=== PATIENT | female | born 1960 | race Caucasian/White ===

== ENCOUNTER → 2020-07-26 16:09 | Outpatient (CLI) | payer OTHER, SELFPAY ==
--- NOTE | 2020-07-26 16:16 | BI_ITS ---
MAMMOGRAPHY - BILATERAL SCREENING REASON FOR EXAM: Female, 60 years old. Routine annual screening examination. PERTINENT HISTORY: Non-contributory. TECHNIQUE: Digital bilateral breast lee (3D mammographic acquisition) in the CC and MLO projections. 2-D mediolateral oblique (MLO) and craniocaudad (CC) views of both breasts were obtained. CAD: Full Field Digital Mammography with Computer Added Detection was performed. COMPARISON: Comparison is made with prior outside examination dated 06/28/2019. FINDINGS: Breast Composition: The breasts are heterogeneously dense, which may obscure small masses. There are no dominant masses or suspicious calcifications. Stable small benign-appearing bilateral axillary lymph nodes. No other significant abnormalities are identified. There has been no significant change since the prior study. BI/SCREEN MAMM (CAD) W/LEE BILAT IMPRESSION: Stable bilateral screening mammogram. Yearly follow-up mammogram recommended. (A) ASSESSMENT CATEGORY: BIRADS Category 2: Benign. A letter regarding these results will be sent to the patient by the facility within 30 days. Approximately 10% of breast cancers are not detected by mammography. A normal mammogram should not delay biopsy of a clinically suspicious abnormality. [id number] Electronically Signed: Josh Beal, at 8:00 EST , Service support ,
== END ==
PROVIDERS: PCP Family Medicine; Referring Provider Family Medicine; Visit Provider Family Medicine
DX: Z12.31 Encounter for screening mammogram for malignant neoplasm of breast (principal)
CPT/HCPCS: 77063; 77067

== ENCOUNTER → 2021-08-21 10:17 | Outpatient (CLI) | payer OTHER, SELFPAY ==
--- NOTE | 2021-08-21 10:21 | BI_ITS ---
MAMMOGRAPHY - BILATERAL SCREENING 3-D TOMOSYNTHESIS REASON FOR EXAM: Female, 61 years old. SCREENING PERTINENT HISTORY: No significant family history. TECHNIQUE: 2-D mammograms and 3-D Tomosynthesis of the breast (s) were performed. CAD was performed. COMPARISON: 07/26/2020 FINDINGS: The breast composition is heterogeneously dense that can obscure small breast masses. Scattered benign calcifications are seen. No dense spiculated masses or suspicious microcalcifications are identified. No architectural distortion is identified. There is no skin thickening or retraction. There has been no significant change since the prior study. BI/SCRN MAMM (CAD)W/LEE BILAT IMPRESSION: No mammographic signs of malignancy. Routine yearly mammograms recommended. ASSESSMENT CATEGORY: BIRADS Category 1: Negative. A letter regarding these results will be sent to the patient by the facility within 30 days. FOLLOW UP RECOMMENDATION: Yearly follow up mammogram recommended. (A) Approximately 10% of breast cancers are not detected by mammography. A normal mammogram should not delay biopsy of a clinically suspicious abnormality. Electronically Signed: Rhett Liu MD at 11:41 EST Tel , Service support ,
--- NOTE | 2021-08-21 10:23 | BD_ITS ---
STUDY: DUAL ENERGY X-RAY ABSORPTIOMETRY / DXA REASON FOR EXAM: Female, 61 years old. Z780. Patient is postmenopausal. TECHNIQUE: Bone Mineral Density (BMD) measurements of lumbar spine and bilateral hips were obtained. COMPARISON: None. FINDINGS: Lumbar Spine (L1-L4): g/cm2 (0.863) / T-score (-1.7) / Z-score (-0.2) Findings are suggestive of osteopenia with a moderate fracture risk. Left Femur Total: g/cm2 (0.775) / T-score (-1.4) / Z-score (-0.4) Left Femoral Neck: g/cm2 (0.712) / T-score (-1.2) / Z-score (0.1) Right Femur Total: g/cm2 (0.796) / T-score (-1.2) / Z-score (-0.2) Right Femoral Neck: g/cm2 (0.715) / T-score (-1.2) / Z-score (0.1) BD/Dexa Bone Density Study IMPRESSION: The patient is considered osteopenic as outlined below according to World Ol[employer] Organization (WHO) criteria with a moderate fracture risk. Reference Information: The T-score is the number of standard deviations above or below the standard which is normal for young adults at their peak bone mineral density. The World Health Organization (WHO) interprets the T-scores as follows: Above -1 Normal bone density Between -1 and -2.5 Osteopenia Equal to / or below -2.5 Osteoporosis As a practical clinical guideline, osteopenia may be graded as follows: Mild -1 through -1.5 Moderate -1.6 through -2.0 Severe -2.1 through -2.4 The Z-score is the number of standard deviations above or below age-matched controls. A Z-score of less than -1.5 would be considered abnormal. References: 1. NIH Osteoporosis and Related Bone Diseases www osteo.org 2. International Society for Clinical Densitometry www iscd.org 3. National Osteoporosis Foundation www nof.org Electronically Signed: Josh Beal MD at 15:02 EST , Service support ,
== END ==
PROVIDERS: PCP Family Medicine; Referring Provider Internal Medicine; Visit Provider Internal Medicine
DX: Z12.31 Encounter for screening mammogram for malignant neoplasm of breast (principal); Z78.0 Asymptomatic menopausal state
CPT/HCPCS: 77063; 77067; 77080

== ENCOUNTER → 2022-06-19 | Outpatient (CLI) | payer OTHER, SELFPAY ==
[2022-06-19 17:58] LABS: Absolute Lymphocyte Count 1.58 X10^3/uL (0.83-4.51); Absolute Neutrophil Count 4.7 X10^3/uL (2.0-7.7); Basophil# 0.06 X10^3/uL; Basophil% 0.8 % (0-1); Eosinophils% 5.5 % (0-5); Hematocrit 40.2 % (37-47); Hemoglobin 12.2 g/dL (12.0-15.0); Lymphocyte # 1.58 X10^3/ul (0.83-4.51); Lymphocyte % 21.8 % (19-41); Mean Corp Hgb Conc 30.3 g/dL (32-36); Mean Corpuscular Hgb 21.7 pg (27.0-32.0); Mean Corpuscular Volume 71.4 fL (81-99); Mean Platelet Vol. 10.9 fl (6.2-12.0); Monocyte# 0.51 X10^3/uL; NRBC Flagged by Analyzer 0 % (0-5); Neutrophil # 4.68 X10^3/uL (2.7-7.7); Neutrophil % 64.6 % (47-70); Platelet Count 255 K/mm3 (150-450); RBC Distribution Width CV 18.8 % (11.6-14.6); Red Blood Count 5.63 M/mm3 (4.2-5.4); White Blood Count 7.3 K/mm3 (4.4-11.0)
[2022-06-19 18:33] LABS: ALB/GLOB Ratio 1.2 RATIO (0.9-2.4); AST(SGOT) 22 U/L (15-37); Alanine Aminotransfer ALT/SGPT 51 U/L (13-56); Alkaline Phosphatase 54 U/L (45-117); Anion Gap 5 (5-15); BUN 17 mg/dL (7-18); BUN/Creat Ratio 17.3 RATIO (10-20); Calcium,Total 9.4 mg/dL (8.5-10.1); Chloride 103 mmol/L (98-107); Cholesterol 192 mg/dL (200); Creatinine, Serum 0.98 mg/dL (0.55-1.02); EST Glomerular Filtration Rate 61 mL/min (>60); Est Glom Filt Rate - Afr Amer 74 mL/min (>60); Globulin 3.2 g/dL (2.2-4.2); Glucose 87 mg/dL (74-106); High Density Lipoprotein 73 mg/dL; Protein, Total 7.2 g/dL (6.4-8.2); Sodium Level 137 mmol/L (136-145); Triglycerides 104 mg/dL; Very Low Density Lipoprotein 21 mg/dL (5-40)
== END | disposition home or self-care (01) ==
LOC: MTLAB 16:52
PROVIDERS: PCP Internal Medicine; Referring Provider Internal Medicine; Visit Provider Internal Medicine
DX: E78.5 Hyperlipidemia, unspecified (principal); E55.9 Vitamin D deficiency, unspecified
CPT/HCPCS: 36415; 80053; 80061; 82306; 85025

== ENCOUNTER → 2022-11-26 | Outpatient (CLI) | payer OTHER, SELFPAY ==
--- NOTE | 2022-11-26 08:43 | US_ITS ---
STUDY: ABDOMINAL ULTRASOUND - RIGHT UPPER QUADRANT REASON FOR VISIT: Female, 62 years old RUQ pain TECHNIQUE: Ultrasound evaluation of the right upper quadrant was performed with real-time and static castillo-scale imaging. TECHNICAL QUALITY: Adequate. COMPARISON: CT scan from 2017 FINDINGS: Liver: The liver measures 12.8 cm. There is normal echogenicity of the liver. The bile ducts are within normal limits. There is hepatic color flow. The direction of portal flow is hepatopetal. There is no demonstrated mass lesion. Gallbladder: Normal distended gallbladder. The gallbladder wall measures 2.1 mm. There is a negative sonographic Dotson''s sign. There is no pericholecystic fluid. There are no gallstones. Common Bile Duct (C.B.D.): The common bile duct measures 3.5 mm. Pancreas: Normal size of the head, body and tail of the pancreas. There is normal echogenicity of the pancreas. There is no demonstrated pancreatic mass or cyst. Right Kidney: Normal size of the right kidney. The right kidney measures 11.1 x 7 x 6.2 cm. Normal renal cortex. The right cortex measures 1.6 cm. There is no demonstrated renal mass or cyst. There is moderate hydronephrosis of the right kidney. US/Abdomen Limited IMPRESSION: Moderate to severe right hydronephrosis of uncertain etiology, the previous CT scan demonstrated multiple right renal stones, but none are seen today Electronically Signed: Mekhi Campbell MD at 8:38 EDT ,
== END | disposition home or self-care (01) ==
LOC: US 08:42
PROVIDERS: PCP Internal Medicine; Referring Provider Internal Medicine; Visit Provider Internal Medicine
DX: R10.11 Right upper quadrant pain (principal)
CPT/HCPCS: 76705

== ENCOUNTER 2022-11-27 21:16 | Emergency (ER) | payer OTHER, SELFPAY ==
[2022-11-27 21:16] VITALS: BP 144/82; PULSE 80; RESP 16; TEMP 36.2; O2SAT 100; BMI 27.2
[2022-11-27 21:41] LABS: Color, Urine Yellow (Yellow); Glucose, Dipstick Normal (Normal); Ketone-Dipstick Negative (Negative); Leukocyte Esterase-Dipstick 500 /ul (Negative); Mucous, Urine 0 SEEN /hpf (<or=2+); Nitrite-Dipstick Negative (Negative); Occult Blood-Urine 10 /ul (Negative); Protein-Dipstick Negative (Negative); Red Blood Cells-Urine 0 SEEN /hpf (0-5); Specific Gravity, Urine 1.005 (1.002-1.030); Urine Bilirubin Dipstick Negative (Negative); Urine Clarity Clear (Clear); Urine Urobilinogen Normal (Normal); Urine pH 6.5 (5.0 - 8.0)
[2022-11-27 21:47] LABS: Absolute Lymphocyte Count 1.26 X10^3/uL (0.83-4.51); Absolute Neutrophil Count 5.2 X10^3/uL (2.0-7.7); Basophil# 0.03 X10^3/uL; Basophil% 0.4 % (0-1); Eosinophil# 0.41 X10^3/uL; Eosinophils% 5.5 % (0-5); Lymphocyte # 1.26 X10^3/ul (0.83-4.51); Mean Corp Hgb Conc 29.7 g/dL (32-36); Mean Corpuscular Hgb 20.6 pg (27.0-32.0); Mean Corpuscular Volume 69.4 fL (81-99); Mean Platelet Vol. 10.1 fl (6.2-12.0); Monocyte# 0.48 X10^3/uL; Monocyte% 6.5 % (0-10); NRBC Flagged by Analyzer 0 % (0-5); Neutrophil % 70.2 % (47-70); Platelet Count 370 K/mm3 (150-450); RBC Distribution Width CV 16.7 % (11.6-14.6); RBC Distribution Width SD 41.1 fl (35.1-43.9); Red Blood Count 5.33 M/mm3 (4.2-5.4); White Blood Count 7.4 K/mm3 (4.4-11.0)
[2022-11-27 21:50] LABS: Bacteria RARE /hpf (None Seen); Squamous Epithelial Cells - UA 0-5 SEEN /hpf (5-10); White Blood Cells 5-10 SEEN /hpf (0-5)
[2022-11-27 22:13] LABS: Anion Gap 7 (5-15); BUN 14 mg/dL (7-18); BUN/Creat Ratio 9.7 RATIO (10-20); Calcium,Total 9.8 mg/dL (8.5-10.1); Chloride 102 mmol/L (98-107); Creatinine, Serum 1.45 mg/dL (0.55-1.02); EST Glomerular Filtration Rate 39 mL/min (>60); Est Glom Filt Rate - Afr Amer 47 mL/min (>60); Estimated Creatinine Clearance 34.74 ml/min; Glucose 114 mg/dL (74-106); Potassium 4.4 mmol/L (3.5-5.1); Sodium Level 135 mmol/L (136-145)
--- NOTE | 2022-11-27 22:32 | CT_ITS ---
STUDY: CT ABDOMEN AND PELVIS WITHOUT CONTRAST REASON FOR EXAM: Female, 62 years old. Right-sided abdominal pain for weeks. Question hydronephrosis. RADIATION DOSAGE (If Supplied By Facility): CTDIvol = ( 7.50 ) mGy, DLP = ( 325.96 ) mGycm TECHNIQUE: Transaxial images were obtained from the dome of the diaphragm to the symphysis pubis without oral contrast, and without intravenous contrast. Sagittal and coronal images were reconstructed. Individualized dose optimization techniques were used for this CT. COMPARISON: August 28, 2016. FINDINGS: The visualized lung bases are unremarkable. The visualized portions of the heart are within normal limits. Normal liver. Normal gallbladder and extrahepatic biliary system. Mild splenomegaly without mass. Normal pancreas. Normal bilateral adrenal glands. The right kidney is enlarged. There is marked hydronephrosis and pelviectasis. There is dilatation of the ureter with mild stranding to the pelvic sidewall where there is a 0.6 x 0.4 x 0.5 cm obstructing calculus (image 109, series 2) Normal left kidney. Normal left ureter. Normal visualized stomach. Normal small intestine. Normal colon. The appendix is visualized and appears normal. There is diffuse atherosclerotic calcification of the abdominal aorta, without a demonstrated aneurysm. Normal inferior vena cava. Normal retroperitoneum. Normal urinary bladder. Normal uterus and adnexa. No pelvic lymphadenopathy. No free air or free fluid is seen within the peritoneal cavity. Small umbilical hernia of omental fat. The abdominal wall is otherwise unremarkable. There are diffuse degenerative changes of the visualized lumbar spine. CT/Abdomen/Pelvis without Cont IMPRESSION: 1. Marked right-sided hydronephrosis and ureterectasis. There is a calculus along the right pelvic sidewall. 2. Normal left kidney. 3. Mild splenomegaly. 4. Otherwise normal CT of the abdomen and pelvis Electronically Signed: Sb Perry DO at 23:07 EDT ,
[2022-11-27 23:09] LABS: AST(SGOT) 48 U/L (15-37); Alanine Aminotransfer ALT/SGPT 80 U/L (13-56); Albumin, Serum 3.1 g/dL (3.2-5.0); Alkaline Phosphatase 82 U/L (45-117); Bilirubin, Direct 0.13 mg/dL (0.00-0.30); Globulin 4.6 g/dL (2.2-4.2); Lipase 143 U/L (73-393); Protein, Total 7.7 g/dL (6.4-8.2); Troponin-I HS 3 pg/mL (3.0-54.0)
--- NOTE | 2022-11-27 23:24 | EDS_ITS ---
HPI History of Present Illness Chief Complaint: Abd Pain Informant: patient Onset/Context/Timing Onset: Weeks Context: Gradual Onset Timing: Waxes and wanes Narrative Narrative: Patient presents secondary to epigastric abdominal pain that has been ongoing for couple weeks. On 21 November she went to see her doctor about pain that had been in the epigastric region and wrapping around to the right upper quadrant. It seems to be worse with eating. She is been following a bland diet because of this pain. She had an outpatient ultrasound yesterday and states that she received a phone call from her PCP ramez that there was some abnormality noted with her right kidney and she needed to come to the emergency room. I did review the ultrasound report. The gallbladder is unremarkable with no pericholecystic fluid and no gallstones. There is moderate hydronephrosis of the right kidney noted. I did come in the report that the patient previously had right renal stones and those were not visualized on the ultrasound. [facility] Medical History High cholesterol Kidney stone Home Medications Fluticasone 0.05% 1 inhaler inhalation BID 08/28/16 [History Last Taken 08/28/16] Xyzal 5 mg PO DAILY 08/28/16 [History Last Taken 08/28/16] azelastine 137 mcg (0.1 %) nasal spray aerosol 1 spray BID 08/28/16 [History Last Taken 08/28/16] simvastatin 20 mg tablet (Zocor) 20 mg PO QHS 08/28/16 [History Last Taken 08/27/16] ciprofloxacin HCl 250 mg tablet 250 mg PO BID ##20 08/29/16 [Rx Last Taken Unknown] hydrocodone-acetaminophen 5-325mg 5mg-325mg (Aquilla) 1 - 2 ea PO Q6H PRN PRN Pain #20 tabs 08/29/16 [Rx Last Taken Unknown] Allergy/AdvReac Type Severity Reaction Status Date / Time Sulfa (Sulfonamide Allergy Hives Verified 11/27/22 21:18 Antibiotics) Social History Smoking Status: Never smoker ROS ROS ED Constitutional Constitutional ED: Denies chills or fever(s) Eyes Eyes: Denies change in vision or discharge from eye(s) ENT ENT ED: Denies discharge from eye(s), rhinorrhea or sore throat Cardiovascular Cardiovascular: Denies chest pain or palpitations Respiratory/Chest Respiratory/Chest: Denies cough or dyspnea Gastrointestinal Gastrointestinal: Reports abdominal pain and nausea; Denies diarrhea or vomiting Genitourinary Genitourinary ED: Denies difficulty urinating or dysuria Musculoskeletal Musculoskeletal: Denies back pain or extremity pain Integumentary Denies Abrasions or rash Neurologic Neurologic: Denies headache(s) or weakness Psychiatric Psychiatric: Denies anxiety or depression Allergic/Immunologic Allergic/Immunologic ED: Denies lip swelling or urticaria EXAM Physical Exam Const Vital Signs: 11/27/22 21:16 Temperature 97.2 F L Temperature Source Temporal Pulse Rate 80 Respiratory Rate 16 Blood Pressure 144/82 H Blood Pressure Mean 102 Pulse Ox 100 Oxygen Delivery Method Room Air Positive well nourished and well developed General Appearance ED: well developed HEENT Reports normocephalic and head/scalp atraumatic Eyes PERRL and EOMs intact bilaterally Neck supple Chest Wall inspection of chest normal and palpation of chest normal Resp normal respiratory effort and clear to auscultation bilaterally Cardio regular rate and regular rhythm GI GI Narrative: Mild epigastric tenderness palpation. No guarding or rebound. Normal bowel sounds. Palpation: soft Extremity normal to inspection Neuro oriented x3 and no sensory deficits noted Sensorium / Orientation: alert Motor Exam: strength 5/5 throughout Psych mental status grossly normal Skin no rashes or lesions noted MDM MDM MDM Narrative Medical decision making narrative: Labwork obtained to evaluate for leukocytosis, anemia, and electrolyte derangement. Urinalysis obtained to evaluate for infection/hematuria. EKG obtained given her epigastric pain. CT flank ordered. Lab Data Attestation: I reviewed the patient's lab results. Labs: Laboratory Results - last 24 hr 11/27/22 11/27/22 11/27/22 21:25 21:25 21:25 WBC 7.4 RBC 5.33 Hgb 11.0 L Hct 37.0 MCV 69.4 L MCH 20.6 L MCHC 29.7 L RDW Std Deviation 41.1 RDW Coeff of Nanci 16.7 H Plt Count 370 MPV 10.1 Immature Gran % (Auto) 0.400 Neut % (Auto) 70.2 H Lymph % (Auto) 17.0 L [place] % (Auto) 6.5 Eos % (Auto) 5.5 H Baso % (Auto) 0.4 Absolute Neuts (auto) 5.2 Absolute Lymphs (auto) 1.26 Nucleated RBC % 0 Sodium 135 L Potassium 4.4 Chloride 102 Carbon Dioxide 26.0 Anion Gap 7 BUN 14 Creatinine 1.45 H Estim Creat Clear Calc 34.74 Est GFR (MDRD) Af Amer 47 L Est GFR (MDRD) Non-Af 39 L BUN/Creatinine Ratio 9.7 L Glucose 114 H Calcium 9.8 Total Bilirubin 0.30 Direct Bilirubin 0.13 AST 48 H ALT 80 H Alkaline Phosphatase 82 Troponin I High Sens 3 Total Protein 7.7 Albumin 3.1 L Globulin 4.6 H Lipase 143 Urine Color Urine Clarity Urine pH Ur Specific [place] Urine Protein Urine Glucose (UA) Urine Ketones Urine Occult Blood Urine Nitrite Urine Bilirubin Urine Urobilinogen Ur Leukocyte Esterase Urine RBC Urine WBC Ur Squamous Epith Cells Urine Bacteria Urine Mucus 11/27/22 21:34 WBC RBC Hgb Hct MCV MCH MCHC RDW Std Deviation RDW Coeff of Nanci Plt Count MPV Immature Gran % (Auto) Neut % (Auto) Lymph % (Auto) [place] % (Auto) Eos % (Auto) Baso % (Auto) Absolute Neuts (auto) Absolute Lymphs (auto) Nucleated RBC % Sodium Potassium Chloride Carbon Dioxide Anion Gap BUN Creatinine Estim Creat Clear Calc Est GFR (MDRD) Af Amer Est GFR (MDRD) Non-Af BUN/Creatinine Ratio Glucose Calcium Total Bilirubin Direct Bilirubin AST ALT Alkaline Phosphatase Troponin I High Sens Total Protein Albumin Globulin Lipase Urine Color Yellow Urine Clarity Clear Urine pH 6.5 Ur Specific [place] 1.005 Urine Protein Negative Urine Glucose (UA) Normal Urine Ketones Negative Urine Occult Blood 10 H Urine Nitrite Negative Urine Bilirubin Negative Urine Urobilinogen Normal Ur Leukocyte Esterase 500 H Urine RBC 0 SEEN Urine WBC 5-10 SEEN Ur Squamous Epith Cells 0-5 SEEN Urine Bacteria RARE Urine Mucus 0 SEEN Radiography Diagnostic Testing: Clinical Impression(s) from Imaging Studies Abdomen/Pelvis CT 11/27/22 22:32 IMPRESSION: 1. Marked right-sided hydronephrosis and ureterectasis. There is a calculus along the right pelvic sidewall. 2. Normal left kidney. 3. Mild splenomegaly. 4. Otherwise normal CT of the abdomen and pelvis Electronically Signed: Sb Perry DO at 23:07 EDT Reading Location ID and State: [address] [place] [address] Tel [phone], Service support , EKG Initial EKG: Attestation: I personally reviewed and interpreted this EKG as follows: Interpretation: Sinus Rhythm (Sinus at 73 with no acute ischemia.) Treatment and Re-Evaluation :: CBC was normal white count with a hemoglobin of 11.0. Chemistry studies reveal a creatinine of 1.45. Creatinine has been up to 1.69 in the past but most recently was 0.95. LFTs reveal AST of 48 and ALT of 80. Lipase is normal at 143. Urinalysis reveals 500 leukocyte esterase with 5-10 white cells and 0-5 epithelials. Rare bacteria noted. EKG reveals no evidence of ischemia. CT flank reveals a 6 mm right ureteral stone with hydronephrosis on the right. Test results are discussed with the patient. Her symptoms are still more consistent with GI/gallbladder related illness. She is not having any flank pain that wraps into her groin. I do feel she is stable for outpatient follow- up and will be referred to Dr. Andrade. She is given return instructions if she has any worsening symptoms or concerns. She voices understanding and agreement. Discharge Plan Triage Chief Complaint: Abd Pain ED Provider: Dixie Mejia Dx/Rx/DC Orders Clinical Impression: Ureterolithiasis Instructions: ED Kidney Stone w/ Colic Prescriptions: No Action simvastatin [Zocor] 20 MG tablet 20 mg PO QHS azelastine 1 SPRAY aerosol,spray 1 spray NASAL BID Fluticasone 0.05% 1 inhaler inhalation BID Xyzal 5 mg PO DAILY hydrocodone-acetaminophen [Aquilla] 1 EACH tablet 1 - 2 ea PO Q6H PRN PRN (Reason: Pain) Qty: 20 0RF Rx Instructions: . . ciprofloxacin HCl 250 MG tablet 250 mg PO BID Qty: 20 0RF Primary Care Provider: Tatum Baker Referrals: Maria Luisa Andrade MD [Med Staff - Active Staff] - As soon as possible Tatum Baker DO [Primary Care Provider] - Activity Restrictions/Additional Instructions: As discussed, please call Dr. Andrade tomorrow to make an appointment. Let them know you were seen in the emergency room and had a 6 mm kidney stone on the right with hydronephrosis. Please return to the emergency room for repeat eval for any worsened pain or concerns. Disposition Disposition: Home, Self Care
[2022-11-27 23:40] VITALS: BP 132/75; PULSE 75; RESP 16; O2SAT 100
== END 2022-11-27 23:41 | disposition home or self-care (01) ==
PROVIDERS: Emergency Provider Emergency Medicine; PCP Internal Medicine; Visit Provider Emergency Medicine
DX: N13.2 Hydronephrosis with renal and ureteral calculous obstruction (principal); R10.11 Right upper quadrant pain; E78.00 Pure hypercholesterolemia, unspecified; Z79.899 Other long term (current) drug therapy
CPT/HCPCS: 74176; 80048; 80076; 81001; 83690; 84484; 85025; 93005; 99282

== ENCOUNTER 2022-12-05 08:29 | Day surgery (SDC) | payer OTHER, SELFPAY ==
--- NOTE | 2022-12-05 07:54 | DCINST_ITS ---
Discharge Instructions Diet Discharge Diet: No restrictions Activity Discharge Activity: Return to Normal Activity May resume sexual activity in: No Restrictions Dressing / Incision Call your doctor if you observe: Fever of 101 or Higher, Inability to urinate and Inability to have a bowel movement Follow Up Care Please Follow Up With: Maria Luisa Andrade MD When: call office for appt Test Results: Test results from this visit will be discussed in further detail at your follow- up appointment, if applicable. Discharge Plan Admission Attending Provider: Maria Luisa Andrade Primary Care Provider: Tatum Baker Discharge Orders/Prescriptions Prescriptions: New cephalexin [cephalexin] 500 mg capsule 500 mg PO Q12 3 Days Qty: 6 0RF oxycodone-acetaminophen [Percocet] 5-325 mg tablet 1 tab PO Q8H PRN (Reason: pain) 3 Days Qty: 10 0RF phenazopyridine [Pyridium] 200 mg tablet 200 mg PO TID PRN PRN (Reason: Bladder Spasms) 7 Days Qty: 30 0RF Continued simvastatin [Zocor] 20 MG tablet 20 mg PO QHS Referrals / Follow Up: Tatum Baker DO [Primary Care Provider] - Disposition Disposition (needs filled in before D/C Order can be placed): Home, Self Care
--- NOTE | 2022-12-05 07:57 | OP.PCM_ITS ---
Problems Associated Problem List Diagnoses (1) Right ureteral stone: Report of Operation Date of Procedure: 12/05/22 Pre-Operative Diagnosis: right ureteral calculus Post-Operative Diagnosis: same Surgery/Procedure Performed:: cystoscopy, right ureteroscopy, holmium laser lithotripsy, right retrograde pyelogram, right ureteral stent insertion Surgeon: Maria Luisa Andrade Type of Anesthesia: General Specimen's removed: Stone fragments Description of Procedure: The patient is a 62-year-old female who was undergoing an evaluation for possible gallbladder issue when she was found to have significant right-sided hydronephrosis. A CT scan was performed confirming a mid ureteral calculus with obstruction. Informed consent was obtained and she now presents for surgical intervention. The patient was taken to the operating room and placed on the operating room table. Anesthesia monitored the head, neck, airway, IV access and vital signs throughout the case. Once anesthesia was appropriately administered, the patient was placed into dorsal lithotomy position and was prepped and draped in usual sterile fashion. The cystoscope was inserted through the urethra under direct visualization into the urinary bladder. An attempt was made at passage of an 0.035 Glidewire past the stone through the right ureter but this was unsuccessful. The semirigid ureteroscope was then used to gently cannulate the right ureter and direct visualization of the stone was obtained. A Glidewire was then passed around the stone and was visualized in the renal pelvis on fluoroscopy. Using laser lithotripsy, the ureteral calculus was broken into small pieces which were then basket retrieved. The right ureter was very edematous where the stone had been. The ureteroscope was then advanced beyond the area of the stone, and there was question of correct anatomic placement of the wire in the renal pelvis. A retrograde pyelogram was performed revealing a kinking of the ureter proximally. An angled Glidewire was then inserted. The ureteroscope was then able to successfully navigate through the ureteral narrowing and into the renal pelvis which confirmed significant hydronephrosis. The wire was seen in the correct anatomic position. At this time the ureteroscope was removed under direct visualization and a 6 [place] 24 cm JJ stent was placed with good positioning in the renal pelvis as well as the urinary bladder. The patient's bladder was then emptied and the case was terminated. She was awakened and taken to the recovery room in good condition. There were no complications during the procedure. Grafts/Implants Used: 6 x 26cm JJ stent Complications none Admit VTE Documentation VTE Present on Admission: Yes VTE Mechan Device Prophylaxis: SCD's VTE Pharm Prophylaxis ordered?: No Reason prophylaxis not ordered:: Treatment Not Indicated
[2022-12-05 08:51] VITALS: BP 123/88; PULSE 76; RESP 16; TEMP 36.3; O2SAT 100; BMI 26.6
[2022-12-05] MEDS: Lactated Ringers 1,000 ML 15 ML IV (09:02)
--- NOTE | 2022-12-05 10:15 | CALC_PTH ---
PATIENT: OMAIRA CHUNG LOC: [facility] [place] U#:[id number] AGE/SX: 62/F ROOM: RE12/05/[address]: Dr. Maria Luisa Andrade MD : 1960 BED: DIS: 12/05/2022 SPEC #: [id number] RECD: 12/05/22 12:53 STATUS: THALIA RERosita #: [id number] MAIDA: 12/05/22 10:[address]: Maria Luisa Andrade DEPT: SURGICAL PATHOLOGY RECD BY: Mercedes Johnson ENTERED: 12/05/22 13:11 SP TYPE: Calculi OTHR DR: Dr. Tatum Baker, DO Tissues: CALCULI Procedures: Surgery Specimen Level I HEADER OPERATION: Cysto, ureteroscopy, stone basket, stent, laser PRE-OP DIAGNOSIS: Right ureteral calculus TISSUE SUBMITTED: Ureteral calculi GROSS DIAGNOSIS Fragments of stone, clinically ureteral calculi (gross only). SJ:sravan 12/06/2022 COMMENT The calculus is submitted in its entirety for chemical stone analysis. The results from this study will be reported separately. GROSS DESCRIPTION Received without fixative labeled with the patient's name and designated ureteral calculi. The specimen consists of multiple fragments of brownish stone measuring in aggregate 0.5 x 0.2 x 0.1 cm. The calculus is submitted in its entirety for chemical stone analysis. / DEMARCUS:sravan 12/05/2022 CPT: 07296
[2022-12-05] MEDS: Cefazolin 2 GM in 0.9% Normal Saline 100 ML IV (10:44)
[2022-12-05 11:52] VITALS: BP 123/88; BP 135/80; PULSE 78; RESP 16; TEMP 36.1; O2SAT 96
[2022-12-05 11:58] VITALS: BP 109/88; BP 123/88; PULSE 76; RESP 16; O2SAT 98
[2022-12-05 12:05] VITALS: BP 123/88; BP 130/79; PULSE 77; RESP 16; O2SAT 99
[2022-12-05 12:10] VITALS: BP 123/88; BP 137/83; PULSE 73; RESP 16; TEMP 36.2; O2SAT 96
[2022-12-05 12:35] VITALS: BP 123/88
[2022-12-14 22:30] LABS: Source Ureter
== END 2022-12-05 13:05 | disposition home or self-care (01) ==
LOC: SDC 08:30 → AC 08:34
PROVIDERS: PCP Internal Medicine; Referring Provider Urology; Visit Provider Urology
PROC: 0TJ98ZZ Inspection of Ureter, Via Natural or Artificial Opening Endoscopic (ICD-10-PCS; CPT 52352; principal; 2022-12-05 10:05)
DX: N13.2 Hydronephrosis with renal and ureteral calculous obstruction (principal); E78.00 Pure hypercholesterolemia, unspecified; Z78.0 Asymptomatic menopausal state
CPT/HCPCS: 52356; 00918; 76000; 82360; 88300; J7120; C1769; C2617; J2405

== ENCOUNTER → 2023-01-16 | Outpatient (CLI) | payer OTHER, SELFPAY ==
--- NOTE | 2023-01-16 09:29 | NM_ITS ---
CLINICAL: 62-year-old female with history of right upper quadrant abdominal pain. RADIONUCLIDE HEPATOBILIARY SCINTIGRAPHY COMPARISON: CT of the abdomen-pelvis report 11/27/2022, abdominal ultrasound report 11/26/2022 FINDINGS: Following the intravenous administration of 5.4 mCi of 99m Tc Mebrofenin, hepatobiliary images reveal: 1. Relatively prompt and homogeneous radiopharmaceutical concentration is noted by a normal sized liver. No parenchymal defects are identified. 2. Gallbladder activity is identified at 15 minutes post radiopharmaceutical administration. 3. Small intestinal tract is not visualized during 60 minutes of sequential imaging acquisition. Small bowel is observed at 75 minutes following tracer injection. 4. Washout of the radiopharmaceutical by the hepatic parenchyma appears qualitatively normal. NM/Hepatobilliary Imaging IMPRESSION: 1. ABNORMAL 99m Tc Mebrofenin hepatobiliary imaging examination. A. Visualization of the gallbladder within 60 minutes post radiopharmaceutical administration excludes acute cholecystitis with 97% certitude. (Rad et al, Nucl Med Sara [employer] Press pg. 35, 1981). B. Delayed small bowel demonstration (> 60 minutes) may represent partial common bile duct obstruction in the appropriate clinical setting. (Josep et al, Semin Nucl Med 12: 53, 1982). Electronically Signed: Rhett Skinner, at 22:56 EDT ,
== END | disposition home or self-care (01) ==
LOC: NM 09:28
PROVIDERS: PCP Internal Medicine; Referring Provider Internal Medicine; Visit Provider Internal Medicine
DX: R10.11 Right upper quadrant pain (principal)
CPT/HCPCS: 78226; A9537

== ENCOUNTER → 2023-02-01 | Outpatient (CLI) | payer OTHER, SELFPAY ==
--- NOTE | 2023-02-01 11:06 | US_ITS ---
HISTORY: RT HYDRO. TECHNIQUE: Sigala scale and color doppler images were obtained of the kidneys. 79 images. COMPARISON: CT 11/27/2022. FINDINGS: RIGHT KIDNEY: 9.3 cm in length with a cortical thickness of 1.7 cm. Contour and echogenicity unremarkable. No hydronephrosis. 1.7 x 2.3 x 1.7 cm cyst.. LEFT KIDNEY: 8.2 cm in length with a cortical thickness of 1.5 cm. Contour and echogenicity unremarkable. No hydronephrosis. No gross renal mass demonstrated. URINARY BLADDER: Unremarkable at 64 cc with a wall thickness of 2 mm. Bilateral ureteral jets visualized. US/Kidney and Bladder IMPRESSION: Resolution of right hydronephrosis. 2.3 cm right renal cyst. Electronically Signed: Ruth Gill MD at 15:58 EDT ,
== END | disposition home or self-care (01) ==
LOC: US 11:02
PROVIDERS: PCP Internal Medicine; Referring Provider Urology; Visit Provider Urology
DX: N13.30 Unspecified hydronephrosis (principal)
CPT/HCPCS: 76770

== ENCOUNTER → 2023-02-21 | Outpatient (CLI) | payer OTHER, SELFPAY ==
--- NOTE | 2023-02-21 09:36 | NM_ITS ---
CLINICAL: 62-year-old female with history of epigastric pain. RADIONUCLIDE HEPATOBILIARY SCINTIGRAPHY COMPARISON: Hepatobiliary scintigraphy study dated 01/16/2023 FINDINGS: Following the intravenous administration of 5.5 mCi of 99m Tc Mebrofenin, hepatobiliary images reveal: 1. Relatively prompt and homogeneous radiopharmaceutical concentration is noted by a normal sized liver. No parenchymal defects are identified. 2. Gallbladder activity is identified at 30 minutes post radiopharmaceutical administration. 3. Small intestinal tract is observed at 15 minutes following tracer injection. 4. Washout of the radiopharmaceutical by the hepatic parenchyma appears qualitatively normal. Cholecystokinin (0.02 ug/kg) was administered intravenously over a 3-minute period. The post CCK gallbladder ejection fraction calculated at 20 minutes following Cholecystokinin administration was noted to be < 5.0 % (normal greater than 35%). There is scintigraphic evidence of post cholecystokinin duodenal-gastric reflux. MS/Hepatobilliary Img w/Pharm Int IMPRESSION: 1. ABNORMAL 99m Tc Mebrofenin hepatobiliary imaging examination with Cholecystokinin. A. A gallbladder ejection fraction calculated to be less than 35% following the administration of Cholecystokinin is consistent with the presence of functional hepatobiliary disease (gallbladder and/or sphincter of Oddi dyskinesia) and/or organic hepatobiliary disease (chronic acalculous cholecystitis and/or cystic duct syndrome) in patients with intermediate to high pretest probabilities of hepatobiliary illness. (Guillermo Kellogg et al, Journal of Nuclear Medicine 32:1695, 1990). B. There is scintigraphic evidence of post CCK duodenal-gastric reflux. (Rad et al, Nucl Med [employer] pg. 35, 1980). Electronically Signed: Rhett Skinner, at 18:07 EDT ,
== END | disposition home or self-care (01) ==
LOC: NM 09:34
PROVIDERS: PCP Internal Medicine; Referring Provider Surgery; Visit Provider Surgery
DX: R10.13 Epigastric pain (principal)
CPT/HCPCS: 78227; A9537; J2805

== ENCOUNTER 2023-05-06 09:15 | Day surgery (SDC) | payer OTHER, SELFPAY ==
[2023-05-06] VITALS (11 sets, daily range): BP systolic 126–159; BP diastolic 68–87; PULSE 64–80; RESP 16–18; TEMP 36.1–36.8; O2SAT 92–964; BMI 25.3
--- NOTE | 2023-05-06 08:58 | EKG12_ITS ---
Test Reason : PREOP Blood Pressure : / mmHG Vent. Rate : 060 BPM Atrial Rate : 060 BPM P-R Int : 152 ms QRS Dur : 090 ms QT Int : 414 ms P-R-T Axes : 071 046 060 degrees QTc Int : 414 ms Normal sinus rhythm Normal ECG When compared with ECG of 27-NOV-2022 22:43, No significant change was found Confirmed by CHERI SUAREZ, DIPTI ([id number]), newspaper or periodical editor KEVIN MARCH ([id number]) on 06/10/2023 1:17:45 PM Referred By: Viridiana Masters Confirmed By:DIPTI ALONZO MD
--- NOTE | 2023-05-06 09:26 | HP.PCM.SX_ITS ---
HPI - General General Date of Service: 05/06/23 HPI Narrative OMAIRA CHUNG, is a 62 F who presents for laparoscopic cholecystectomy with cholangiograms due to biliary dyskinesia. Patient denies increased abdominal pain or flares has been able to tolerate a diet and eating smaller meals having chicken salad with no increased discomfort. office visit 03/14/23 HPI HPI: 62-year-old male presents to discuss HIDA results. Patient's HIDA scan did show ejection fraction less than 5%. Patient still having some epigastric discomfort after eating she is trying to avoid fatty greasy foods. Patient states the pain is uncomfortable but tolerable. [facility] Medical History (Updated 03/14/23 @ 10:[address] Viridiana Masters MD) Alcohol use High cholesterol Hydronephrosis Kidney stone Non-smoker Post-menopausal Right ureteral stone Wears contact lenses Wears glasses Home Medications simvastatin 20 mg tablet (Zocor) 20 mg PO QHS 08/28/16 [History Last Taken 08/27/16] azelastine 137 mcg (0.1 %) nasal spray aerosol 1 spray intranasal DAILY 04/22/23 [History Last Taken Unknown] Allergy/AdvReac Type Severity Reaction Status Date / Time Sulfa (Sulfonamide Allergy Severe Hives Verified 05/06/23 09:44 Antibiotics) Surgical History (Updated 04/22/23 @ 13:09 by Betsy Acosta) History of Hx of colonoscopy Hx of cystoscopy Social History Smoking Status: Never smoker Physical Exam Const alert, oriented x3 and no apparent distress HEENT normocephalic and head/scalp atraumatic Resp normal respiratory effort Cardio regular rate GI soft to palpation and non-tender; Negative for non-distended Palpation: Negative for guarding Extremity no clubbing, cyanosis or edema Neuro CN's II-XII intact bilaterally Psych mental status grossly normal Assessment & Plan Assessment/Plan (1) Biliary dyskinesia: PLAN: Plan Reviewed the anatomy with the patient and discussed the procedure: laparoscopic cholecystectomy with cholangiograms, possible open. Review risks including but not limited to bleeding, infection, hernia, bile leak, retained gallstones requiring another procedure ERCP- Endoscopic Retrograde Cholangiopancreatography, injury to another organ (bile ducts, common bile duct, small bowel, etc.) and conversion to an open procedure. All questions were answered. Viridiana Masters M.D. Pager: [phone] [facility] [address] [place] [address] [address] [id number] Office: [phone]
[2023-05-06] MEDS: Lactated Ringers 1,000 ML 15 ML IV ×2 (10:00→12:56)
--- NOTE | 2023-05-06 11:00 | RAD_ITS ---
STUDY: INTRAOPERATIVE GLANDULAR. REASON FOR EXAM: Female, 62 years old. PAIN FLUOROSCOPY TIME (if supplied): ( 6 seconds ) minutes/seconds. 1.47 mGy TECHNIQUE: An intraoperative quadrant was performed by the surgeon. Imaging was submitted. COMPARISON: None. FINDINGS: Intra and extrahepatic biliary ducts are unremarkable. No intraluminal filling defects are seen. There is free flow of contrast into the duodenum. RAD/Cholangiogram/ O R,Initial IMPRESSION: Unremarkable intraoperative cholangiogram. Electronically Signed: Josh Beal MD at 14:05 EDT ,
[2023-05-06] MEDS: Cefazolin 2 GM in 0.9% Normal Saline (100mL Bag) 100 ML IV (11:30)
--- NOTE | 2023-05-06 12:00 | GALL_PTH ---
PATIENT: OMAIRA CHUNG LOC: [facility] U#:[id number] AGE/SX: 62/F ROOM: RE05/06/[address]: Dr. Viridiana Masters MD : 1960 BED: DIS: 05/06/2023 SPEC #: [id number] RECD: 05/06/23 15:16 STATUS: THALIA JACQUELINE #: [id number] MAIDA: 05/06/23 12:[address]: Viridiana Masters DEPT: SURGICAL PATHOLOGY RECD BY: Mitchell Valero ENTERED: 05/07/23 09:11 SP TYPE: LYNNE ROBERTS DR: Dr. Tatum Baker DO Tissues: Gallbladder, NOS Procedures: Surgery Specimen Level III HEADER OPERATION: Laparoscopic cholecystectomy with IOC PRE-OP DIAGNOSIS: Biliary dyskinesia TISSUE SUBMITTED: Gallbladder MICROSCOPIC DIAGNOSIS Gallbladder, cholecystectomy: Mild chronic cholecystitis. AM:sravan 05/08/2023 MICROSCOPIC DESCRIPTION Slides are reviewed. GROSS DESCRIPTION Received is one container labeled with the patient's name and designated gallbladder. The specimen consists of a gallbladder measuring 6.5 cm in length and up to 3.5 cm in diameter. The external surface is pink-barth, smooth and glistening for the most part. Focally it is granular, hemorrhagic and contains cautery artifact. The gallbladder contains green-yellow mucoid bile. No stones are identified in the container or in the gallbladder. The mucosa is bile-stained and without any mass lesions. The gallbladder wall measures 0.1 cm in thickness. Cereal Supervisor sections from the gallbladder and the cystic duct are submitted in one cassette. / SJ:rg 05/07/2023 TC:3 CPT: 83230
[2023-05-06] MEDS: Bupivacaine Mpf 0.5% 30 ML VIAL (12:28)
--- NOTE | 2023-05-06 12:29 | PCM.OPRPT ---
Report of Operation Date of Procedure: 05/06/23 Pre-Operative Diagnosis: Biliary dyskinesia Post-Operative Diagnosis: Same Surgery/Procedure Performed:: Laparoscopic cholecystectomy with cholangiograms Surgeon: Viridiana Masters customer success representative: Lilliana Bennett Type of Anesthesia: General/Supplemental Anesthesiologist: Leandro Nagel Special Medications: Ancef 2 g IV x1 Specimen's removed: Gallbladder Estimated Blood Loss (mL): < 10 cc Description of Procedure: Indications: this is a 62 year-old female who developed abdominal pain/nausea/vomiting and on workup was found to have no gallstones, biliary dyskinesia due to decreased ejection fraction per HIDA, with a normal common bile duct. Laparoscopic cholecystectomy was elected. Description procedure: The patient was placed on operating table in supine position. A timeout was completed verifying correct patient, procedure, site, position and special equipment prior to beginning procedure. General Anesthesia was induced. The abdomen was prepped and draped in usual sterile fashion. An incision was made in the natural skin line above the umbilicus. The fascia was elevated and incised. The peritoneum was elevated and incised. Entry into the peritoneum was confirmed visually and no bowel was noted in the vicinity of the incision. Evans trocar was placed. The abdomen was insufflated with carbon dioxide to a pressure of 12-15 mmHg. Patient tolerated insufflation well. The laparoscope was then inserted and abdomen inspected. No injuries from initial trocar placement were noted. Additional trochars were then inserted in the following locations 5 mm trocar in the epigastrium and 2 more 5 mm trochars along the right costal margin. The abdomen was inspected no abnormalities were found. The table is placed in reverse Trendelenburg position with the right side up. The dome of the gallbladder was grasped with atraumatic grasper passed through the lateral port and retracted over the dome of the liver. Infundibulum was then grasped with atraumatic grasper through the midclavicular port and retracted to the right lower quadrant. This maneuver exposed Calot's triangle. The peritoneum overlying the gallbladder infundibulum was then incised and cystic duct and artery identified and circumferentially dissected. Ruiz catheter was used for cholangiograms. The cholangiogram showed good filling of the common bile duct into the duodenum with no filling defects, good filling of the right and left bile ducts as well. The cystic duct and artery were then doubly clipped and divided close to the gallbladder. The gallbladder then dissected from its peritoneal attachments by electrocautery. Hemostasis was checked and the gallbladder was removed using the endoscopic retrieval bag through the umbilical port. The gallbladder is passed off table as specimen. The gallbladder fossa was irrigated with saline and hemostasis obtained. There is no evidence of bleeding from the gallbladder fossa or cystic artery leakage of bile from the cystic duct stump. Secondary trochars removed under direct vision. No bleeding was noted the trocar sites. The laparoscope was withdrawn and umbilical trocar removed. The abdomen was allowed to collapse. The fascia of the 12 mm trocar was closed with a [id number] 0 Vicryl suture. The skin was closed with sutures of 4-0 Monocryl and Steri-Strips. The patient was extubated. The patient tolerated procedure well and was taken to the postanesthesia care unit in stable condition. Complications none
--- NOTE | 2023-05-06 12:32 | DCINST_ITS ---
Discharge Instructions Diet Discharge Diet: No restrictions Activity Discharge Activity: Return to Normal Activity May resume sexual activity in: No Restrictions Dressing / Incision Call your doctor if you observe: Fever of 101 or Higher, Inability to urinate and Inability to have a bowel movement Follow Up Care Please Follow Up With: Maria Luisa Andrade MD When: call office for appt Test Results: Test results from this visit will be discussed in further detail at your follow- up appointment, if applicable. Discharge Plan Admission Attending Provider: Viridiana Masters Primary Care Provider: Tatum Baker Discharge Orders/Prescriptions Prescriptions: New tramadol 50 mg tablet 50 - 100 mg PO Q6H PRN (Reason: pain) 3 Days Qty: 10 0RF Continued simvastatin [Zocor] 20 MG tablet 20 mg PO QHS azelastine 137 mcg (0.1 %) aerosol,spray 1 spray INTRANASAL DAILY Referrals / Follow Up: Tatum Baker DO [Primary Care Provider] - Disposition Disposition (needs filled in before D/C Order can be placed): Home, Self Care
[2023-05-06] MEDS: traMADol 50 MG Tablet PO (14:57)
== END 2023-05-06 15:50 | disposition home or self-care (01) ==
LOC: SDC 09:15 → AC 09:22
PROVIDERS: PCP Internal Medicine; Referring Provider Surgery; Visit Provider Surgery
PROC: (CPT 47610; principal; 2023-05-06 11:40)
DX: K81.1 Chronic cholecystitis (principal); E78.00 Pure hypercholesterolemia, unspecified; Z79.899 Other long term (current) drug therapy
CPT/HCPCS: 47563; 00790; 74300; 76000; 88304; 93005; J7120; J2405

== ENCOUNTER → 2023-07-25 | Outpatient (CLI) | payer OTHER, SELFPAY ==
--- NOTE | 2023-07-25 10:04 | BI_ITS ---
MAMMOGRAPHY - BILATERAL SCREENING REASON FOR EXAM: Female, 63 years old. Routine annual screening examination. PERTINENT HISTORY: Non-contributory. TECHNIQUE: Digital bilateral breast lee (3D mammographic acquisition) in the CC and MLO projections. 2-D mediolateral oblique (MLO) and craniocaudad (CC) views of both breasts were obtained. CAD: Full Field Digital Mammography with Computer Added Detection was performed. COMPARISON: Comparison is made with prior studies from and July 26, 2020. FINDINGS: Breast Composition: The breasts are heterogeneously dense, which may obscure small masses. There are no dominant masses or suspicious calcifications. A 5.3 mm well-defined nodule in the central portion of the left breast. Correlation with ultrasound is recommended. No other significant abnormalities are identified. BI/SCRN MAMM (CAD)W/LEE BILAT IMPRESSION: 5.3 mm well-defined nodule in the central portion of the left breast. Correlation with ultrasound is recommended. ASSESSMENT CATEGORY: BIRADS Category 0: Incomplete. Need additional imaging evaluation. A letter regarding these results will be sent to the patient by the facility within 30 days. Approximately 10% of breast cancers are not detected by mammography. A normal mammogram should not delay biopsy of a clinically suspicious abnormality. [id number] Electronically Signed: Josh Beal MD at 11:05 EST ,
== END | disposition home or self-care (01) ==
LOC: OPBI 10:04
PROVIDERS: PCP Internal Medicine; Referring Provider Internal Medicine; Visit Provider Internal Medicine
DX: Z12.31 Encounter for screening mammogram for malignant neoplasm of breast (principal)
CPT/HCPCS: 77063; 77067

== ENCOUNTER → 2023-07-31 | Outpatient (CLI) | payer OTHER, SELFPAY ==
--- NOTE | 2023-07-31 14:55 | US_ITS ---
STUDY: ULTRASOUND BREAST - LEFT REASON FOR EXAM: Female, 63 years old. Abnormal screening mammogram. TECHNIQUE: Axial and longitudinal images of the LEFT breast were performed with a high resolution ultrasound transducer. # OF IMAGES: 30 COMPARISON: Comparison is made with prior mammogram dated July 25, 2023. FINDINGS: LEFT Breast: The lateral aspect of the left breast was examined with ultrasound. There is a 3 mm x 5 mm x 2 mm cyst at the 6:00 position in the breast at 2 cm from the nipple. US/Breast Limited Unilateral IMPRESSION: The mammographic abnormality corresponds to a 3 mm x 5 mm x 2 mm cyst. ASSESSMENT CATEGORY: BIRADS Category 2: Benign. A letter regarding these results will be sent to the patient by the facility within 30 days. Electronically Signed: Josh Beal MD at 15:31 EST ,
== END | disposition home or self-care (01) ==
LOC: OPUS 14:54
PROVIDERS: PCP Internal Medicine; Referring Provider Internal Medicine; Visit Provider Internal Medicine
DX: R92.8 Other abnormal and inconclusive findings on diagnostic imaging of breast (principal); N60.02 Solitary cyst of left breast
CPT/HCPCS: 76642

== ENCOUNTER → 2023-08-26 | Outpatient (CLI) | payer OTHER, SELFPAY ==
--- NOTE | 2023-08-26 10:30 | BD_ITS ---
STUDY: DUAL ENERGY X-RAY ABSORPTIOMETRY / DXA REASON FOR EXAM: Female, 63 years old. [id number] TECHNIQUE: Bone Mineral Density (BMD) measurements of lumbar spine and bilateral hips were obtained. COMPARISON: Comparison is made with prior study dated August 21, 2021. FINDINGS: Lumbar Spine (L1-L4): g/cm2 (0.919) / T-score (-1.2) / Z-score (0.5) Findings are suggestive of osteopenia with a low fracture risk. Left Femur Total: g/cm2 (0.777) / T-score (-1.4) / Z-score (-0.2) Left Femoral Neck: g/cm2 (0.711) / T-score (-1.2) / Z-score (0.2) Right Femur Total: g/cm2 (0.742) / T-score (-1.6) / Z-score (-0.5) Right Femoral Neck: g/cm2 (0.683) / T-score (-1.5) / Z-score (-0.1) The T-Scores on the most recent prior examination were: Lumbar Spine (L1-L4): There has been improvement of bone density since the previous examination. Left Femur Total: which represents an improvement of 0.3%. Right Femur Total: which represents a worsening of 6.8%. BD/Dexa Bone Density Study IMPRESSION: The patient is considered osteopenic as outlined below according to World Ol[employer] Organization (WHO) criteria with a moderate fracture risk. There has been improvement of bone density since the previous examination. Reference Information: The T-score is the number of standard deviations above or below the standard which is normal for young adults at their peak bone mineral density. The World Health Organization (WHO) interprets the T-scores as follows: Above -1 Normal bone density Between -1 and -2.5 Osteopenia Equal to / or below -2.5 Osteoporosis As a practical clinical guideline, osteopenia may be graded as follows: Mild -1 through -1.5 Moderate -1.6 through -2.0 Severe -2.1 through -2.4 The Z-score is the number of standard deviations above or below age-matched controls. A Z-score of less than -1.5 would be considered abnormal. References: 1. NIH Osteoporosis and Related Bone Diseases www osteo.org 2. International Society for Clinical Densitometry www iscd.org 3. National Osteoporosis Foundation www nof.org Electronically Signed: Josh Beal MD at 12:40 EST ,
--- OUTSIDE RECORDS SUMMARY | 2023-08-26 11:22 | XMS RPT_ITS | CCD ---
Author Name Unknown Address [address] [place] [address] Organization [facility] Care Team Providers Care Golf Course Laborer Name Role Phone Tatum Baker Unavailable Tatum Baker DO Unavailable Gravius SUPERVISOR PAIRING AND INSPECTING, Cristina Unavailable Unavailable Dot CONCRETE ENGINEER, Haydee Unavailable Unavailable Slarb CONCRETE ENGINEER, Leatha Unavailable Unavailable Unavailable Unavailable Vinayak CONCRETE ENGINEER, Jacoby Unavailable Unavailable Salma Orosco MA Unavailable Unavailable Tatum Baker DO Attending Unavailable Tatum Baker DO Consulting Unavailable Robotham, Viridiana Unavailable Manchak SUPERVISOR PAIRING AND INSPECTING, Gillian Unavailable Unavailable Sanford CONCRETE ENGINEER, RONDA Unavailable Unavailable Allergies Allergy Classification Reported Allergen(s) Allergy Type Date of Onset Reaction(s) Facility Sulfamethoxazole / Trimethoprim (4 sources) Sulfamethoxazole / Trimethoprim; Translations: [Bactrim *ANTI-INFECTIVE AGENTS - MISC.*] Drug Allergy [facility] Work Phone: Medications Completed/Discontinued Medications Medication Drug Class(es) Dates Sig (Normalized) Sig (Original) azelastine hydrochloride 0.137 mg/actuat metered dose nasal spray (20 sources) Histamine-1 Receptor Antagonist Start: 06-19-2023 take 1 spray(s) nasal route once daily as needed azelastine 137 mcg (0.1 %) intranasal aerosol, spray with pump 1 (one) [place] in each nostril daily prn for 0 days Quantity: 3 {Each} Refills: 1 Ordered: 19-Jun-2023 [place] CONCRETE ENGINEER, RONDA Start : 19-Jun-2023 Active Problems Active Problems Problem Classification Problem Date Documented Da te Episodic/Chronic Abdominal pain (20 sources) Epigastric pain; Translations: [Epigastric pain] Resolved: 06-19-2023 11-21-2022 Episodic Calculus of urinary tract (20 sources) History of calculus of kidney; Translations: [History of nephrolithiasis] 08-31-2021 Episodic Past or Other Problems Problem Classification Problem Date Documented Da te Episodic/Chronic Unclassified (8 sources) Encounter for well adult exam with abnormal findings Unclassified (8 sources) Colon cancer screening (Renamed from Encounter for screening for malignant neoplasm of colon) Unclassified (8 sources) Encounter for screening mammogram for breast cancer (Renamed from Encounter for screening mammogram for malignant neoplasm of breast) Unclassified (11 sources) Postmenopausal (Renamed from Postmenopausal status) Unclassified (20 sources) Unspecified Diagnosis 08-13-2021 Unclassified (3 sources) History of nephrolithiasis Results Test Name Value Interpretation Reference Range Facil ity Vital Signs Date Time Vital Sign Value Performing Clinician Facility 06-19-2023 08:42-0400 Body height 162.56 cm RONDA Christina LPN [facility] Work Phone: 06-19-2023 08:42-0400 Body mass index (BMI) [Ratio] 24.55 kg/m2 RONDA Christina LPN [facility] Work Phone: 06-19-2023 08:42-0400 Body surface area Derived from formula 1.7 m2 RONDA Christina LPN [facility] Work Phone: 06-19-2023 08:42-0400 Body temperature 97.2 [degF] RONDA Christina LPN [facility] Work Phone: Encounters Encounter Date Encounter Type Care Provider Facility Start: 06-20-2023 End: 06-20-2023 Annotation/Addendum Tatum Baker DO Work Phone: [facility] Start: 06-19-2023 End: 06-19-2023 Office outpatient visit 15 minutes Tatum Baker DO Work Phone: [facility] Start: 01-21-2023 End: 01-21-2023 Phone Encounter Tatum Olivia DO Work Phone: [facility] Start: 12-24-2022 End: 12-24-2022 Annotation/Addendum Tatum Olivia DO Work Phone: [facility] Start: 11-22-2022 Review Tatum Fearo n DO Work Phone: [facility] Start: 11-21-2022 ambulatory Tatum Olivia DO [facility] Start: 11-21-2022 End: 11-21-2022 Office outpatient visit 15 minutes Tatum Olivia DO Work Phone: [facility] Start: 06-20-2022 End: 06-20-2022 Annotation/Addendum Tatum Olivia DO Work Phone: [facility] Start: 06-19-2022 Review Tatum Fearo n DO Work Phone: [facility] Start: 06-19-2022 End: 06-19-2022 Office outpatient visit 15 minutes Tatum Olivia DO Work Phone: [facility] Start: 08-31-2021 End: 08-31-2021 Office outpatient visit 15 minutes Tatum Olivia DO Work Phone: [facility] Start: 08-13-2021 End: 08-13-2021 Annotation/Addendum Tatmu Olivia DO Work Phone: [facility] Start: 07-18-2021 End: 07-18-2021 Office outpatient visit 10 minutes Tatum Olivia DO Work Phone: [facility] Start: 12-20-2020 End: 12-20-2020 Office outpatient new 30 minutes Tatum Olivia DO Work Phone: [facility] Start: 12-20-2020 End: 12-20-2020 Patient encounter status Tatum Olivia DO Work Phone: [facility] Work Phone: Patient encounter status Haydee Chris LPN [facility] Work Phone: Patient encounter status Cristina Payne SUPERVISOR PAIRING AND INSPECTING [facility] Work Phone: Patient encounter status Cristina Payne SUPERVISOR PAIRING AND INSPECTING [facility] Work Phone: Patient encounter status Salma Orosco AMILCAR [facility] Work Phone: End: 06-19-2023 Patient encounter status RONDA Christina MAURICIO [facility] Work Phone: Procedures Date Procedure Procedure Detail Performing Clinician Start: 05-23-2023 End: 05-24-2023 Surgery Visit Report Procedure Note: See Note; NOTES: [facility] [address] [place] [address] OFFICE VISIT Date of Service: 05/23/23 MR#: [id number] Acct: [id number] Name: KELLY BLISS Rep #: [id number] : 1960 Provider: Dr. Viridiana canada MD Age/Sex: 62/F Location: [facility] Status: Signed Intake Vital Signs 05/06/23 09:45 Height 5 ft 4 in Intake Visit Reasons: GALLBLADDER 05-06 Chief Complaint: post choley Dust Mixer Required: No Is patient in pain?: No Allergies Sulfa (Sulfonamide Antibiotics) Allergy (Severe, Verified 05/23/23 15:10) Hives Medications simvastatin 20 mg tablet (Zocor) 20 mg PO QHS 08/28/16 [History Confirmed 05/23/23] azelastine 137 mcg (0.1 %) nasal spray aerosol 1 spray intranasal DAILY 04/22/23 [History Confirmed 05/23/23] Is last menstrual period known: No Post menopausal: Yes Patient : No Subjective Details: 62-year-old female presents status post cholecystectomy for biliary dyskinesia. Patient is doing well tolerating diet and having bowel function. Patient denies any current abdominal pain. Objective Details: Abdomen: Soft, nondistended, nontender, no peritoneal signs, incisions healing well. Coding Level of Care Code Global Post Op Diagnoses History of cholecystectomy Z90.49 [facility] Medical History (Updated 05/24/23 @ 09:[address] Viridiana Masters MD) Alcohol use High cholesterol Hydronephrosis Kidney stone Non-smoker Post-menopausal Right ureteral stone Wears contact lenses Wears glasses Surgical History (Updated 05/24/23 @ 09:[address] Viridiana Masters MD) History of History of cholecystectomy ( 04/2023) Hx of colonoscopy Hx of cystoscopy Social History Smoking Status: Never smoker Assessment and Plan (No Qualifiers) Assessment and Plan (1) History of cholecystectomy: Status: Acute Plan Patient is doing well status post laparoscopic cholecystectomy. Incisions healing well. Patient is tolerating diet and having bowel function follow-up as needed. Viridiana Masters M.D. Pager: [phone] [facility] [address] [place] [address] Office: [phone] 05/24/23904 <Electronically signed by Viridiana Masters MD> Date Viridiana Masters MD Cosigner Signature: Date (if applicable) CC: Dr. Tatum Baker, DO Tatum Baker DO Work Phone: Start: 05-06-2023 End: 05-06-2023 Discharge Instruction Procedure Note: See Note; NOTES: [facility] Medical Records Department [address] [place] [address] Instructions for Home/Discharge Instructions 05/06/23 1232 MR#: [id number] Acct: [id number] Name: KELLY BLISS SEVERIANO Rep #: [id number] : 1960 62 From: Viridiana Masters MD PCP: Dr. Tatum Baker DO [place] [facility] [place] Instructions Diet Discharge Diet: No restrictions Activity Discharge Activity: Return to Normal Activity May resume sexual activity in: No Restrictions Dressing / Incision Call your doctor if you observe: Fever of 101 or Higher, Inability to urinate and Inability to have a bowel movement Follow Up Care Please Follow Up With: Maria Luisa Andrade MD When: call office for appt Test Results: Test results from this visit will be discussed in further detail at your follow-up appointment, if applicable. Discharge Plan Admission Attending Provider: Viridiana Masters Primary Care Provider: Tatum Baker Discharge Orders/Prescriptions Prescriptions: New tramadol 50 mg tablet 50 - 100 mg PO Q6H PRN (Reason: pain) 3 Days Qty: 10 0RF Continued simvastatin [Zocor] 20 MG tablet 20 mg PO QHS azelastine 137 mcg (0.1 %) aerosol,spray 1 spray INTRANASAL DAILY Referrals / Follow Up: Tatum Baker DO [Primary Care Provider] - Disposition Disposition (needs filled in before D/C Order can be placed): Home, Self Care 05/06/23 1237<Electronically signed by Viridiana Masters MD>Viridiana Masters MD CC: Dr. Tatum Baker DO Signed Tatum Baker DO Work Phone: Start: 05-06-2023 End: 05-06-2023 Operative Report Procedure Note: See Note; NOTES: [facility] Medical Records Department [address] [place] [address] Operative Report 05/06/23 1229 MR#: [id number] Acct: [id number] Name: KELLY BLISS Rep #: [id number] : 1960 62 From: Viridiana Masters MD PCP: Dr. Tatum Baker DO Status:[facility] Location: [place] [address] Report of Operation Date of Procedure: 05/06/23 Pre-Operative Diagnosis: Biliary dyskinesia Post-Operative Diagnosis: Same Surgery/Procedure Performed:: Laparoscopic cholecystectomy with cholangiograms Surgeon: Viridiana Masters teacher advisor: Lilliana Bennett Type of Anesthesia: General/Supplemental Anesthesiologist: Leandro Nagel Special Medications: Ancef 2 g IV x1 Specimen's removed: Gallbladder Estimated Blood Loss (mL): < 10 cc Description of Procedure: Indications: this is a 62 year-old female who developed abdominal pain/nausea/vomiting and on workup was found to have no gallstones, biliary dyskinesia due to decreased ejection fraction per HIDA, with a normal common bile duct. Laparoscopic cholecystectomy was elected. Description procedure: The patient was placed on operating table in supine position. A timeout was completed verifying correct patient, procedure, site, position and special equipment prior to beginning procedure. General Anesthesia was induced. The abdomen was prepped and draped in usual sterile fashion. An incision was made in the natural skin line above the umbilicus. The fascia was elevated and incised. The peritoneum was elevated and incised. Entry into the peritoneum was confirmed visually and no bowel was noted in the vicinity of the incision. Evans trocar was placed. The abdomen was insufflated with carbon dioxide to a pressure of 12-15 mmHg. Patient tolerated insufflation well. The laparoscope was then inserted and abdomen inspected. No injuries from initial trocar placement were noted. Additional trochars were then inserted in the following locations 5 mm trocar in the epigastrium and 2 more 5 mm trochars along the right costal margin. The abdomen was inspected no abnormalities were found. The table is placed in reverse Trendelenburg position with the right side up. The dome of the gallbladder was grasped with atraumatic grasper passed through the lateral port and retracted over the dome of the liver. Infundibulum was then grasped with atraumatic grasper through the midclavicular port and retracted to the right lower quadrant. This maneuver exposed Calot's triangle. The peritoneum overlying the gallbladder infundibulum was then incised and cystic duct and artery identified and circumferentially dissected. Ruiz catheter was used for cholangiograms. The cholangiogram showed good filling of the common bile duct into the duodenum with no filling defects, good filling of the right and left bile ducts as well. The cystic duct and artery were then doubly clipped and divided close to the gallbladder. The gallbladder then dissected from its peritoneal attachments by electrocautery. Hemostasis was checked and the gallbladder was removed using the endoscopic retrieval bag through the umbilical port. The gallbladder is passed off table as specimen. The gallbladder fossa was irrigated with saline and hemostasis obtained. There is no evidence of bleeding from the gallbladder fossa or cystic artery leakage of bile from the cystic duct stump. Secondary trochars removed under direct vision. No bleeding was noted the trocar sites. The laparoscope was withdrawn and umbilical trocar removed. The abdomen was allowed to collapse. The fascia of the 12 mm trocar was closed with a [id number] 0 Vicryl suture. The skin was closed with sutures of 4-0 Monocryl and Steri-Strips. The patient was extubated. The patient tolerated procedure well and was taken to the postanesthesia care unit in stable condition. Complications none 05/06/23 1232 <Electronically signed by Viridiana Masters MD> Cosigner Signature (if applicable): CC: Dr. Tatum Baker DO; Dr. Viridiana Masters MD Signed Tatum Baker DO Work Phone: Start: 05-06-2023 End: 05-07-2023 Cholangiogram/ O R,Initial Procedure Note: See Note; NOTES: [facility] Services [address] [place] [address] Cholangiogram/ O R,Initial MR#: [id number] Acct: [id number] Name: KELLY BLISS Rep #: [id number] : 1960 F 62 From: Josh garcia MD PCP: Dr. Tatum Baker DO Status: [facility] Study: Cholangiogram/ O R,Initial Date of Exam: 05/06 Exam# [id number] Ordering Dr: Viridiana Masters MD STUDY: INTRAOPERATIVE GLANDULAR. REASON FOR EXAM: Female, 62 years old. PAIN FLUOROSCOPY TIME (if supplied): ( 6 seconds ) minutes/seconds. 1.47 mGy TECHNIQUE: An intraoperative quadrant was performed by the surgeon. Imaging was submitted. COMPARISON: None. FINDINGS: Intra and extrahepatic biliary ducts are unremarkable. No intraluminal filling defects are seen. There is free flow of contrast into the duodenum. RAD/Cholangiogram/ O R,Initial IMPRESSION: Unremarkable intraoperative cholangiogram. Electronically Signed: Josh Beal MD at 14:05 EDT , CC: Dr. Tatum Baker, ; Dr. Viridiana Masters MD Binder Operator: Signed Viridiana Masters Work Phone: Start: 05-06-2023 End: 05-06-2023 H AND P Exam - Surgical Procedure Note: See Note; NOTES: [facility] Medical Records Department [address] [place] [address] H P Exam - Surgical 05/06/23925 MR#: [id number] Acct: [id number] Name: KELLY BLISS Rep #: [id number] : 1960 62 From: Viridiana Masters MD PCP: Dr. Tatum Baker, Status:[facility] Location: [place] [address] HPI - General General Date of Service: 05/06/23 HPI Narrative KELLY BLISS, is a 62 F who presents for laparoscopic cholecystectomy with cholangiograms due to biliary dyskinesia. Patient denies increased abdominal pain or flares has been able to tolerate a diet and eating smaller meals having chicken salad with no increased discomfort. office visit 03/14/23 HPI HPI: 62-year-old male presents to discuss HIDA results. Patient's HIDA scan did show ejection fraction less than 5%. Patient still having some epigastric discomfort after eating she is trying to avoid fatty greasy foods. Patient states the pain is uncomfortable but tolerable. [facility] Medical History (Updated 03/14/23 @ 10:[address] Viridiana Masters MD) Alcohol use High cholesterol Hydronephrosis Kidney stone Non-smoker Post-menopausal Right ureteral stone Wears contact lenses Wears glasses Home Medications simvastatin 20 mg tablet (Zocor) 20 mg PO QHS 08/28/16 [History Last Taken 08/27/16] azelastine 137 mcg (0.1 %) nasal spray aerosol 1 spray intranasal DAILY 04/22/23 [History Last Taken Unknown] Allergy/AdvReac Type Severity Reaction Status Date / Time Sulfa (Sulfonamide Allergy Severe Hives Verified 05/06/23 09:44 Antibiotics) Surgical History (Updated 04/22/23 @ 13:09 by Betsy Acosta) History of Hx of colonoscopy Hx of cystoscopy Social History Smoking Status: Never smoker Physical Exam Const alert, oriented x3 and no apparent distress HEENT normocephalic and head/scalp atraumatic Resp normal respiratory effort Cardio regular rate GI soft to palpation and non-tender; Negative for non-distended Palpation: Negative for guarding Extremity no clubbing, cyanosis or edema Neuro CN's II-XII intact bilaterally Psych mental status grossly normal Assessment Plan Assessment/Plan (1) Biliary dyskinesia: PLAN: Plan Reviewed the anatomy with the patient and discussed the procedure: laparoscopic cholecystectomy with cholangiograms, possible open. Review risks including but not limited to bleeding, infection, hernia, bile leak, retained gallstones requiring another procedure ERCP- Endoscopic Retrograde Cholangiopancreatography, injury to another organ (bile ducts, common bile duct, small bowel, etc.) and conversion to an open procedure. All questions were answered. Viridiana Masters M.D. Pager: [phone] [facility] [address] [place] [address], [address] [place] [address] Office: [phone] 05/06/23 110 <Electronically signed by Viridiana Masters MD> Cosigner Signature (if applicable): CC: Dr. Tatum Baker DO; Dr. Viridiana Masters MD Signed Tatum Baker DO Work Phone: Start: 05-06-2023 End: 06-10-2023 12 Lead EKG Procedure Note: See Note; NOTES: [facility] Cardiovascular Services [address] [place] [address] 12 Lead EKG 05/06/23 0944 MR#: [id number] Acct: [id number] Name: KELLY BLISS Rep #: [id number] : 1960 62 From: Juan Emerson MD Attending Dr: Dr. Viridiana Masters MD [place]: [place] [facility] [place]: Leandro Nagel MD Date: 05/06/23 [place] [facility] Sex: F C Admitted: Test Reason : PREOP Blood Pressure : / mmHG Vent. Rate : 060 BPM Atrial Rate : 060 BPM P-R Int : 152 ms QRS Dur : 090 ms QT Int : 414 ms P-R-T Axes : 071 046 060 degrees QTc Int : 414 ms Normal sinus rhythm Normal ECG When compared with ECG of 27-NOV-2022 22:43, No significant change was found Confirmed by CHERI SUAREZ, JUAN ([id number]), sports editor KEVIN MARCH ([id number]) on 06/10/2023 1:17:45 PM Referred By: Viridiana Masters Confirmed By:JUAN EMERSON MD 06/10/23 1317 Date Juan Emerson MD CC: Dr. Leandro Nagel MD; Dr. Tatum Baker DO; Dr. Viridiana Masters MD Signed Tatum Baker DO Work Phone: Start: 03-14-2023 End: 03-14-2023 Surgery Visit Report Procedure Note: See Note; NOTES: [facility] [address] [place] [address]. [address] [place] [address] OFFICE VISIT Date of Service: 03/14/23 MR#: [id number] Acct: [id number] Name: KELLY BLISS Rep #: [id number] : 1960 Provider: Dr. Viridiana canada MD Age/Sex: 62/F Location: [facility] Status: Signed Intake Vital Signs 01/27/23 13:55 Height 5 ft 4 in Weight: 153 lb 8 oz BMI 26.3 BP 133/82 H Blood Pressure Location Rt brachial Position Sitting Respiration 18 Pulse 68 Pulse Source Monitor Temp 97.4 F L Temp Source Temporal Pulse Oximetry (%) 99 Oxygen Delivery Method room air Intake Visit Reasons: DISCUSS GALLBLADDER SURGERY Chief Complaint: discuss surgery Allergies No Known Allergies Allergy (Unverified 03/14/23 09:25) Medications simvastatin 20 mg tablet (Zocor) 20 mg PO QHS 08/28/16 [History Confirmed 03/14/23] cephalexin 500 mg capsule 500 mg PO Q12 post-operative 3 days #6 CAPSULES 12/05/22 [Rx Confirmed 03/14/23] oxycodone-acetaminophen 5 mg-325 mg tablet (Percocet) 1 tab PO Q8H PRN pain 3 days #10 tabs 12/05/22 [Rx Confirmed 03/14/23] phenazopyridine 200 mg tablet (Pyridium) 200 mg PO TID PRN PRN Bladder Spasms 7 days #30 tabs 12/05/22 [Rx Confirmed 03/14/23] pantoprazole 40 mg tablet,delayed release 40 mg PO DAILY #30 tabs 01/27/23 [Rx Confirmed 03/14/23] PFSH Medical History Alcohol use High cholesterol Hydronephrosis Kidney stone Non-smoker Post-menopausal Right ureteral stone Wears contact lenses Wears glasses Surgical History History of Hx of colonoscopy Hx of cystoscopy Social History Smoking Status: Never smoker HPI HPI HPI: 62-year-old male presents to discuss HIDA results. Patient's HIDA scan did show ejection fraction less than 5%. Patient still having some epigastric discomfort after eating she is trying to avoid fatty greasy foods. Patient states the pain is uncomfortable but tolerable. ROS General General: Yes weight change and fatigue; No appetite, colon cancer or breast cancer HEENT HEENT: No difficulty swallowing, eye injury, eye surgery, swollen glands or hoarseness Endo Endocrine: No thyroid disease, diabetes mellitus, thyroid cancer, Hair loss, heat intolerance or cold intolerance Skin Skin: No rash or changing moles Musc Musculoskeletal: No back problems, arthritis, rheumatoid arthritis, gout or joint pain Cardio Cardiovascular: No murmur, pacemaker, heart disease, atrial fibrillation, high blood pressure, heart attack, heart stent, palpitations, shortness of breat with exertion or chest pain Psych Psychiatric: No depression, anxiety or hearing voices Resp Respiratory: No shortness of breath, No sleep apnea, No cough, No COPD, No asthma, No emphysema and No wheezing Gastro Gastrointestinal: Yes abdominal pain, Yes nausea or vomiting, Yes diarrhea, Yes constipation, No blood in stool, No acid reflux, No hemorrhoids, No ulcers, Yes gallbladder problem and No black,tarry stools Clive Hematologic: No blood thinners, No blood disorders, No bleeding, No anemia and No blood clots Neuro Neurologic: No numbness and No tingling Exam Const General: cooperative, healthy appearing, comfortable and no acute distress HENIA Head: normocephalic and atraumatic Neck Neck: supple Resp Effort Inspection: normal respiratory effort Cardio Rate: regular rate GI Inspection: non-distended Palpation: soft, no hernias and nontender Skin General: no rashes or lesions noted Neuro General: CN's II-XI intact bilaterally Extrem General: normal to inspection Psych Mental Status: mental status grossly normal Attitude: cooperative Assessment and Plan Assessment and Plan (1) Biliary dyskinesia: Status: Acute (2) Epigastric pain: Status: Acute Plan Did review patient's HIDA scan results with her. Also discussed the pathophysiology of biliary dyskinesia. Patient was curious she did not have her gallbladder out anything with really be a risk. Did discuss she would continue to have that pain down to be increased at that would bring her to the ER. Patient just has a lot of things currently going on but thinks it may be in April would be a good time to have it out as she has already also met her deductible. Reviewed the anatomy with the patient and discussed the procedure: laparoscopic cholecystectomy with cholangiograms, possible open. Review risks including but not limited to bleeding, infection, hernia, bile leak, retained gallstones requiring another procedure ERCP- Endoscopic Retrograde Cholangiopancreatography, injury to another organ (bile ducts, common bile duct, small bowel, etc.) and conversion to an open procedure. All questions were answered. Viridiana Masters M.D. Pager: [phone] [facility] [address] [place] [address], [address] [place] [address] Office: [phone] Coding Level of Care Code Off vis,est,level 3 Diagnoses Biliary dyskinesia K82.8 Epigastric pain R10.13 03/14/23 1042 <Electronically signed by Viridiana Masters MD> Date Viridiana Masters MD Cosigner Signature: Date (if applicable) CC: Dr. Tatum Baker, DO Tatum Baker DO Work Phone: Start: 02-21-2023 End: 02-21-2023 Hepatobilliary Img w/Pharm Int Procedure Note: See Note; NOTES: [facility] Imaging Services [address] [place] [address] Hepatobilliary Img w/Pharm Int MR#: [id number] Acct: [id number] Name: KELLY BLISS Rep #: [id number] : 1960 F 62 From: Rhett Montelongo PCP: Dr. Tatum Baker, Status: REG CLI Study: Hepatobilliary Img w/Pharm Int Date of Exam: 0 02/21/23 Exam# [id number] Ordering Dr: Viridiana Masters MD CLINICAL: 62-year-old female with history of epigastric pain. RADIONUCLIDE HEPATOBILIARY SCINTIGRAPHY COMPARISON: Hepatobiliary scintigraphy study dated 01/16/2023 FINDINGS: Following the intravenous administration of 5.5 mCi of 99m Tc Mebrofenin, hepatobiliary images reveal: 1. Relatively prompt and homogeneous radiopharmaceutical concentration is noted by a normal sized liver. No parenchymal defects are identified. 2. Gallbladder activity is identified at 30 minutes post radiopharmaceutical administration. 3. Small intestinal tract is observed at 15 minutes following tracer injection. 4. Washout of the radiopharmaceutical by the hepatic parenchyma appears qualitatively normal. Cholecystokinin (0.02 ug/kg) was administered intravenously over a 3-minute period. The post CCK gallbladder ejection fraction calculated at 20 minutes following Cholecystokinin administration was noted to be < 5.0 % (normal greater than 35%). There is scintigraphic evidence of post cholecystokinin duodenal-gastric reflux. NM/Hepatobilliary Img w/Pharm Int IMPRESSION: 1. ABNORMAL 99m Tc Mebrofenin hepatobiliary imaging examination with Cholecystokinin. A. A gallbladder ejection fraction calculated to be less than 35% following the administration of Cholecystokinin is consistent with the presence of functional hepatobiliary disease (gallbladder and/or sphincter of Oddi dyskinesia) and/or organic hepatobiliary disease (chronic acalculous cholecystitis and/or cystic duct syndrome) in patients with intermediate to high pretest probabilities of hepatobiliary illness. (Guillermo Kellogg et al, Journal of Nuclear Medicine 32:1695, 1990). B. There is scintigraphic evidence of post CCK duodenal-gastric reflux. (Rad et al, Nucl Med Sara Bee Press pg. 35, 1980). Electronically Signed: Rhett Skinner, at 18:07 EDT , CC: Dr. Tatum Baker, ; Dr. Viridiana Masters MD Binder Operator: Signed Viridiana Masters Work Phone: Start: 02-01-2023 End: 02-01-2023 Kidney and Bladder Procedure Note: See Note; NOTES: [facility] Imaging Services [address] [place] [address] Kidney and Bladder MR#: [id number] Acct: [id number] Name: KELLY BLISS Rep #: [id number] : 1960 F 62 From: Ruth harris MD PCP: Dr. Tatum Baker, Status: REG CLI Study: Kidney and Bladder Date of Exam: 02/01/23 Exam# [id number] Ordering Dr: Maria Luisa Andrade MD HISTORY: RT HYDRO. TECHNIQUE: Sigala scale and color doppler images were obtained of the kidneys. 79 images. COMPARISON: CT 11/27/2022. FINDINGS: RIGHT KIDNEY: 9.3 cm in length with a cortical thickness of 1.7 cm. Contour and echogenicity unremarkable. No hydronephrosis. 1.7 x 2.3 x 1.7 cm cyst.. LEFT KIDNEY: 8.2 cm in length with a cortical thickness of 1.5 cm. Contour and echogenicity unremarkable. No hydronephrosis. No gross renal mass demonstrated. URINARY BLADDER: Unremarkable at 64 cc with a wall thickness of 2 mm. Bilateral ureteral jets visualized. US/Kidney and Bladder IMPRESSION: Resolution of right hydronephrosis. 2.3 cm right renal cyst. Electronically Signed: Ruth Gill MD at 15:58 EDT Reading Location ID and State: [facility] / [place] Tel , Service support , CC: Dr. Maria Luisa Andrade MD; Dr. Tatum Baker DO Binder Operator: Signed Tatum Baker DO Work Phone: Start: 01-27-2023 End: 01-27-2023 Surgery Visit Report Procedure Note: See Note; NOTES: [facility] [address] [facility] [place] [address] OFFICE VISIT Date of Service: 01/27/23 MR#: [id number] Acct: [id number] Name: KELLY BLISS Rep #: [id number] : 1960 Provider: Dr. Viridiana canada MD Age/Sex: 62/F Location: [facility] Status: Signed Intake Vital Signs 12/05/22 08:51 01/27/23 13:55 Height 5 ft 4 in 5 ft 4 in Weight: 153 lb 8 oz BMI 26.3 BP 133/82 H Blood Pressure Location Rt brachial Position Sitting Respiration 18 Pulse 68 Pulse Source Monitor Temp 97.4 F L Temp Source Temporal Pulse Oximetry (%) 99 Oxygen Delivery Method room air Intake Visit Reasons: GALLBLADDER Chief Complaint: LRQ pain with nausea and vomiting Medications simvastatin 20 mg tablet (Zocor) 20 mg PO QHS 08/28/16 [History Confirmed 01/27/23] cephalexin 500 mg capsule 500 mg PO Q12 post-operative 3 days #6 CAPSULES 12/05/22 [Rx Confirmed 01/27/23] oxycodone-acetaminophen 5 mg-325 mg tablet (Percocet) 1 tab PO Q8H PRN pain 3 days #10 tabs 12/05/22 [Rx Confirmed 01/27/23] phenazopyridine 200 mg tablet (Pyridium) 200 mg PO TID PRN PRN Bladder Spasms 7 days #30 tabs 12/05/22 [Rx Confirmed 01/27/23] pantoprazole 40 mg tablet,delayed release 40 mg PO DAILY #30 tabs 01/27/23 [Rx Confirmed 01/27/23] PFSH Medical History Alcohol use High cholesterol Hydronephrosis Kidney stone Non-smoker Post-menopausal Right ureteral stone Wears contact lenses Wears glasses Surgical History History of Hx of colonoscopy Hx of cystoscopy Social History Smoking Status: Never smoker HPI HPI HPI: 62-year-old female initially presented to her PCP due to right back pain nausea vomiting and chills patient was found to have kidney stone upon work-up for her gallbladder. Ultrasound the gallbladder did not show any gallstones. Patient did have surgery with Dr. Garner at [facility] for her kidney stone. Patient states she is still having some epigastric discomfort and bloating/early satiety. Patient states she can have this prior to ever eating as well as right after eating. This morning patient only had some applesauce and a small amount of salad with a low-fat salad dressing. Patient does not state that this will wake her up in the [facility] from sleeping. Patient denies any reflux symptoms. Patient never had a previous EGD. Patient states she has had a colonoscopy within the last 10 years, which was negative per patient by Dr. Jim. patient states she has also had a couple of Cologuard done within the last 10 years as well???negative. ROS General General: Yes weight change and fatigue; No appetite, colon cancer or breast cancer HEENT HEENT: No difficulty swallowing, eye injury, eye surgery, swollen glands or hoarseness Endo Endocrine: No thyroid disease, diabetes mellitus, thyroid cancer, Hair loss, heat intolerance or cold intolerance Skin Skin: No rash or changing moles Musc Musculoskeletal: No back problems, arthritis, rheumatoid arthritis, gout or joint pain Cardio Cardiovascular: No murmur, pacemaker, heart disease, atrial fibrillation, high blood pressure, heart attack, heart stent, palpitations, shortness of breat with exertion or chest pain Psych Psychiatric: No depression, anxiety or hearing voices Resp Respiratory: No shortness of breath, No sleep apnea, No cough, No COPD, No asthma, No emphysema and No wheezing Gastro Gastrointestinal: Yes abdominal pain, Yes nausea or vomiting, Yes diarrhea, Yes constipation, No blood in stool, No acid reflux, No hemorrhoids, No ulcers, Yes gallbladder problem and No black,tarry stools Clive Hematologic: No blood thinners, No blood disorders, No bleeding, No anemia and No blood clots Neuro Neurologic: No numbness and No tingling Exam Const General: cooperative, healthy appearing and no acute distress HENMT Head: normal to inspection Resp Effort Inspection: normal respiratory effort Cardio Rate: regular rate GI Inspection: non-distended Palpation: soft, no guarding, no hernias and tender in the epigastrum (Mild); with no rebound tenderness Skin General: no rashes or lesions noted Neuro General: patient oriented x3 Extrem General: no clubbing, cyanosis or edema Psych Affect: normal affect Assessment and Plan Assessment and Plan (1) Epigastric pain: Status: Acute (2) Bloating symptom: Status: Acute Orders: Orders Hepatobilliary Img w/Pharm Int Today R10.13 - Epigastric pain Medications: New pantoprazole 40 mg PO DAILY 30 tabs 2RF Plan Patient's pain does seem to fit well more with gastric etiology as the symptoms are not 30 minutes to an hour after eating. Patient can have the symptoms prior to eating. Did review patient's previous ultrasound as well as HIDA scan with the patient. Patient did not have CCK for the first HIDA scan thus unable to say how well the gallbladder actually functions. We will plan to check a HIDA scan with CCK and also start patient on Protonix 40 mg p.o. daily patient can also take some Pepcid initially for the first couple days to help it work a little faster. Patient is agreeable with plan. Will call patient with results. Viridiana Masters M.D. Pager: [phone] [facility] [address] [place] [address], Outpatient [facility], [address] [place] [address] Office: [phone] Coding Level of Care Code Off vis,new,level 4 Diagnoses Epigastric pain R10.13 Bloating symptom R14.0 01/27/23 1504 <Electronically signed by Viridiana Masters MD> Date Viridiana Masters MD Cosigner Signature: Date (if applicable) CC: DO Tatum Polo DO Work Phone: Start: 01-16-2023 End: 01-16-2023 Hepatobilliary Imaging Procedure Note: See Note; NOTES: [facility] Imaging Services [address] [place] [address] Hepatobilliary Imaging MR#: [id number] Acct: [id number] Name: KELLY BLISS Rep #: [id number] : 1960 F 62 From: Rhett Montelongo PCP: Dr. Tatum Baker, Status: REG CLI Study: Hepatobilliary Imaging Date of Exam: 01/16/23 Exam# [id number] Ordering Dr: Tatum Baker DO CLINICAL: 62-year-old female with history of right upper quadrant abdominal pain. RADIONUCLIDE HEPATOBILIARY SCINTIGRAPHY COMPARISON: CT of the abdomen-pelvis report 11/27/2022, abdominal ultrasound report 11/26/2022 FINDINGS: Following the intravenous administration of 5.4 mCi of 99m Tc Mebrofenin, hepatobiliary images reveal: 1. Relatively prompt and homogeneous radiopharmaceutical concentration is noted by a normal sized liver. No parenchymal defects are identified. 2. Gallbladder activity is identified at 15 minutes post radiopharmaceutical administration. 3. Small intestinal tract is not visualized during 60 minutes of sequential imaging acquisition. Small bowel is observed at 75 minutes following tracer injection. 4. Washout of the radiopharmaceutical by the hepatic parenchyma appears qualitatively normal. NM/Hepatobilliary Imaging IMPRESSION: 1. ABNORMAL 99m Tc Mebrofenin hepatobiliary imaging examination. A. Visualization of the gallbladder within 60 minutes post radiopharmaceutical administration excludes acute cholecystitis with 97% certitude. (Rad et al, Nucl Med Sara Bee Press pg. 35, 1981). B. Delayed small bowel demonstration (> 60 minutes) may represent partial common bile duct obstruction in the appropriate clinical setting. (Josep et alli, Semin Nucl Med 12: 53, 1981). Electronically Signed: Rhett Skinner, at 22:56 EDT , CC: Dr. Tatum Baker DO Binder Operator: Signed Tatum Baker DO Work Phone: Start: 12-05-2022 End: 12-05-2022 Operative Report Procedure Note: See Note; NOTES: [facility] Medical Records Department [address] [place] [address] Operative Report 12/05/22 0757 MR#: [id number] Acct: [id number] Name: KELLY BLISS Rep #: [id number] : 1960 62 From: Maria Luisa Andrade MD PCP: Dr. Tatum Baker DO Status:[facility] Location: [place] [address] Problems Associated Problem List Diagnoses (1) Right ureteral stone: Report of Operation Date of Procedure: 12/05/22 Pre-Operative Diagnosis: right ureteral calculus Post-Operative Diagnosis: same Surgery/Procedure Performed:: cystoscopy, right ureteroscopy, holmium laser lithotripsy, right retrograde pyelogram, right ureteral stent insertion Surgeon: Maria Luisa Andrade Type of Anesthesia: General Specimen's removed: Stone fragments Description of Procedure: The patient is a 62-year-old female who was undergoing an evaluation for possible gallbladder issue when she was found to have significant right-sided hydronephrosis. A CT scan was performed confirming a mid ureteral calculus with obstruction. Informed consent was obtained and she now presents for surgical intervention. The patient was taken to the operating room and placed on the operating room table. Anesthesia monitored the head, neck, airway, IV access and vital signs throughout the case. Once anesthesia was appropriately administered, the patient was placed into dorsal lithotomy position and was prepped and draped in usual sterile fashion. The cystoscope was inserted through the urethra under direct visualization into the urinary bladder. An attempt was made at passage of an 0.035 Glidewire past the stone through the right ureter but this was unsuccessful. The semirigid ureteroscope was then used to gently cannulate the right ureter and direct visualization of the stone was obtained. A Glidewire was then passed around the stone and was visualized in the renal pelvis on fluoroscopy. Using laser lithotripsy, the ureteral calculus was broken into small pieces which were then basket retrieved. The right ureter was very edematous where the stone had been. The ureteroscope was then advanced beyond the area of the stone, and there was question of correct anatomic placement of the wire in the renal pelvis. A retrograde pyelogram was performed revealing a kinking of the ureter proximally. An angled Glidewire was then inserted. The ureteroscope was then able to successfully navigate through the ureteral narrowing and into the renal pelvis which confirmed significant hydronephrosis. The wire was seen in the correct anatomic position. At this time the ureteroscope was removed under direct visualization and a 6 Kiswahili 24 cm JJ stent was placed with good positioning in the renal pelvis as well as the urinary bladder. The patient's bladder was then emptied and the case was terminated. She was awakened and taken to the recovery room in good condition. There were no complications during the procedure. Grafts/Implants Used: 6 x 26cm JJ stent Complications none Admit VTE Documentation VTE Present on Admission: Yes VTE Mechan Device Prophylaxis: SCD's VTE Pharm Prophylaxis ordered?: No Reason prophylaxis not ordered:: Treatment Not Indicated 12/05/22 1216 <Electronically signed by Maria Luisa Andrade MD> Cosigner Signature (if applicable): CC: Dr. Maria Luisa Andrade MD; Dr. Tatum Baker, DO Signed Tatum Baker DO Work Phone: Start: 12-05-2022 End: 12-05-2022 Discharge Instruction Procedure Note: See Note; NOTES: [facility] Medical Records Department [address] [place] [address] Instructions for Home/Discharge Instructions 12/05/22 0754 MR#: [id number] Acct: [id number] Name: KELLY BLISS Rep #: [id number] : 1960 62 From: Maria Luisa Andrade MD PCP: Dr. Tatum Baker DO [place] [facility] [place] Instructions Diet Discharge Diet: No restrictions Activity Discharge Activity: Return to Normal Activity May resume sexual activity in: No Restrictions Dressing / Incision Call your doctor if you observe: Fever of 101 or Higher, Inability to urinate and Inability to have a bowel movement Follow Up Care Please Follow Up With: Maria Luisa Andrade MD When: call office for appt Test Results: Test results from this visit will be discussed in further detail at your follow-up appointment, if applicable. Discharge Plan Admission Attending Provider: Maria Luisa Andrade Primary Care Provider: Tatum Baker Discharge Orders/Prescriptions Prescriptions: New cephalexin [cephalexin] 500 mg capsule 500 mg PO Q12 3 Days Qty: 6 0RF oxycodone-acetaminophen [Percocet] 5-325 mg tablet 1 tab PO Q8H PRN (Reason: pain) 3 Days Qty: 10 0RF phenazopyridine [Pyridium] 200 mg tablet 200 mg PO TID PRN PRN (Reason: Bladder Spasms) 7 Days Qty: 30 0RF Continued simvastatin [Zocor] 20 MG tablet 20 mg PO QHS Referrals / Follow Up: Tatum Baker DO [Primary Care Provider] - Disposition Disposition (needs filled in before D/C Order can be placed): Home, Self Care 12/05/22 1211<Electronically signed by Maria Luisa Andrade MD>Maria Luisa Andrade MD CC: Dr. Tatum Baker DO Signed Tatum Baker DO Work Phone: Start: 11-27-2022 End: 11-28-2022 Emergency Department Summary Procedure Note: See Note; NOTES: [facility] Medical Records Department [address] [place] [address] Emergency Department Summary 11/27/22 MR#: [id number] Acct: [id number] Name: KELLY BLISS Rep #: [id number] : 1960 62 From: Dixie Mejia MD PCP: Dr. Tatum Baker, DO Status:DEP ER Location: ED HPI History of Present Illness Chief Complaint: Abd Pain Informant: patient Onset/Context/Timing Onset: Weeks Context: Gradual Onset Timing: Waxes and wanes Narrative Narrative: Patient presents secondary to epigastric abdominal pain that has been ongoing for couple weeks. On 21 November she went to see her doctor about pain that had been in the epigastric region and wrapping around to the right upper quadrant. It seems to be worse with eating. She is been following a bland diet because of this pain. She had an outpatient ultrasound yesterday and states that she received a phone call from her PCP tonight that there was some abnormality noted with her right kidney and she needed to come to the emergency room. I did review the ultrasound report. The gallbladder is unremarkable with no pericholecystic fluid and no gallstones. There is moderate hydronephrosis of the right kidney noted. I did come in the report that the patient previously had right renal stones and those were not visualized on the ultrasound. [facility] Medical History High cholesterol Kidney stone Home Medications Fluticasone 0.05% 1 inhaler inhalation BID 08/28/16 [History Last Taken 08/28/16] Xyzal 5 mg PO DAILY 08/28/16 [History Last Taken 08/28/16] azelastine 137 mcg (0.1 %) nasal spray aerosol 1 spray BID 08/28/16 [History Last Taken 08/28/16] simvastatin 20 mg tablet (Zocor) 20 mg PO QHS 08/28/16 [History Last Taken 08/27/16] ciprofloxacin HCl 250 mg tablet 250 mg PO BID ##20 08/29/16 [Rx Last Taken Unknown] hydrocodone-acetaminophen 5-325mg 5mg-325mg ([place]) 1 - 2 ea PO Q6H PRN PRN Pain #20 tabs 08/29/16 [Rx Last Taken Unknown] Allergy/AdvReac Type Severity Reaction Status Date / Time Sulfa (Sulfonamide Allergy Hives Verified 11/27/22 21:18 Antibiotics) Social History Smoking Status: Never smoker ROS ROS ED Constitutional Constitutional ED: Denies chills or fever(s) Eyes Eyes: Denies change in vision or discharge from eye(s) ENT ENT ED: Denies discharge from eye(s), rhinorrhea or sore throat Cardiovascular Cardiovascular: Denies chest pain or palpitations Respiratory/Chest Respiratory/Chest: Denies cough or dyspnea Gastrointestinal Gastrointestinal: Reports abdominal pain and nausea; Denies diarrhea or vomiting Genitourinary Genitourinary ED: Denies difficulty urinating or dysuria Musculoskeletal Musculoskeletal: Denies back pain or extremity pain Integumentary Denies Abrasions or rash Neurologic Neurologic: Denies headache(s) or weakness Psychiatric Psychiatric: Denies anxiety or depression Allergic/Immunologic Allergic/Immunologic ED: Denies lip swelling or urticaria EXAM Physical Exam Const Vital Signs: 11/27/22 21:16 Temperature 97.2 F L Temperature Source Temporal Pulse Rate 80 Respiratory Rate 16 Blood Pressure 144/82 H Blood Pressure Mean 102 Pulse Ox 100 Oxygen Delivery Method Room Air Positive well nourished and well developed General Appearance ED: well developed HEENT Reports normocephalic and head/scalp atraumatic Eyes PERRL and EOMs intact bilaterally Neck supple Chest Wall inspection of chest normal and palpation of chest normal Resp normal respiratory effort and clear to auscultation bilaterally Cardio regular rate and regular rhythm GI GI Narrative: Mild epigastric tenderness palpation. No guarding or rebound. Normal bowel sounds. Palpation: soft Extremity normal to inspection Neuro oriented x3 and no sensory deficits noted Sensorium / Orientation: alert Motor Exam: strength 5/5 throughout Psych mental status grossly normal Skin no rashes or lesions noted MDM MDM MDM Narrative Medical decision making narrative: Labwork obtained to evaluate for leukocytosis, anemia, and electrolyte derangement. Urinalysis obtained to evaluate for infection/hematuria. EKG obtained given her epigastric pain. CT flank ordered. Lab Data Attestation: I reviewed the patient's lab results. Labs: Laboratory Results - last 24 hr 11/27/22 11/27/22 11/27/22 21:25 21:25 21:25 WBC 7.4 RBC 5.33 Hgb 11.0 L Hct 37.0 MCV 69.4 L MCH 20.6 L MCHC 29.7 L RDW Std Deviation 41.1 RDW Coeff of Nanci 16.7 H Plt Count 370 MPV 10.1 Immature Gran % (Auto) 0.400 Neut % (Auto) 70.2 H Lymph % (Auto) 17.0 L [place] % (Auto) 6.5 Eos % (Auto) 5.5 H Baso % (Auto) 0.4 Absolute Neuts (auto) 5.2 Absolute Lymphs (auto) 1.26 Nucleated RBC % 0 Sodium 135 L Potassium 4.4 Chloride 102 Carbon Dioxide 26.0 Anion Gap 7 BUN 14 Creatinine 1.45 H Estim Creat Clear Calc 34.74 Est GFR (MDRD) Af Amer 47 L Est GFR (MDRD) Non-Af 39 L BUN/Creatinine Ratio 9.7 L Glucose 114 H Calcium 9.8 Total Bilirubin 0.30 Direct Bilirubin 0.13 AST 48 H ALT 80 H Alkaline Phosphatase 82 Troponin I High Sens 3 Total Protein 7.7 Albumin 3.1 L Globulin 4.6 H Lipase 143 Urine Color Urine Clarity Urine pH Ur Specific Coden Urine Protein Urine Glucose (UA) Urine Ketones Urine Occult Blood Urine Nitrite Urine Bilirubin Urine Urobilinogen Ur Leukocyte Esterase Urine RBC Urine WBC Ur Squamous Epith Cells Urine Bacteria Urine Mucus 11/27/22 21:34 WBC RBC Hgb Hct MCV MCH MCHC RDW Std Deviation RDW Coeff of Nanci Plt Count MPV Immature Gran % (Auto) Neut % (Auto) Lymph % (Auto) [place] % (Auto) Eos % (Auto) Baso % (Auto) Absolute Neuts (auto) Absolute Lymphs (auto) Nucleated RBC % Sodium Potassium Chloride Carbon Dioxide Anion Gap BUN Creatinine Estim Creat Clear Calc Est GFR (MDRD) Af Amer Est GFR (MDRD) Non-Af BUN/Creatinine Ratio Glucose Calcium Total Bilirubin Direct Bilirubin AST ALT Alkaline Phosphatase Troponin I High Sens Total Protein Albumin Globulin Lipase Urine Color Yellow Urine Clarity Clear Urine pH 6.5 Ur Specific Coden 1.005 Urine Protein Negative Urine Glucose (UA) Normal Urine Ketones Negative Urine Occult Blood 10 H Urine Nitrite Negative Urine Bilirubin Negative Urine Urobilinogen Normal Ur Leukocyte Esterase 500 H Urine RBC 0 SEEN Urine WBC 5-10 SEEN Ur Squamous Epith Cells 0-5 SEEN Urine Bacteria RARE Urine Mucus 0 SEEN Radiography Diagnostic Testing: Clinical Impression(s) from Imaging Studies Abdomen/Pelvis CT 11/27/22 22:32 IMPRESSION: 1. Marked right-sided hydronephrosis and ureterectasis. There is a calculus along the right pelvic sidewall. 2. Normal left kidney. 3. Mild splenomegaly. 4. Otherwise normal CT of the abdomen and pelvis Electronically Signed: Sb Perry DO at 23:07 EDT Reading Location ID and State: [address] [place] [address] Tel [phone], Service support , EKG Initial EKG: Attestation: I personally reviewed and interpreted this EKG as follows: Interpretation: Sinus Rhythm (Sinus at 73 with no acute ischemia.) Treatment and Re-Evaluation :: CBC was normal white count with a hemoglobin of 11.0. Chemistry studies reveal a creatinine of 1.45. Creatinine has been up to 1.69 in the past but most recently was 0.95. LFTs reveal AST of 48 and ALT of 80. Lipase is normal at 143. Urinalysis reveals 500 leukocyte esterase with 5-10 white cells and 0-5 epithelials. Rare bacteria noted. EKG reveals no evidence of ischemia. CT flank reveals a 6 mm right ureteral stone with hydronephrosis on the right. Test results are discussed with the patient. Her symptoms are still more consistent with GI/gallbladder related illness. She is not having any flank pain that wraps into her groin. I do feel she is stable for outpatient follow-up and will be referred to Dr. Andrade. She is given return instructions if she has any worsening symptoms or concerns. She voices understanding and agreement. Discharge Plan Triage Chief Complaint: Abd Pain ED Provider: Dixie Mejia Dx/Rx/DC Orders Clinical Impression: Ureterolithiasis Instructions: ED Kidney Stone w/ Colic Prescriptions: No Action simvastatin [Zocor] 20 MG tablet 20 mg PO QHS azelastine 1 SPRAY aerosol,spray 1 spray NASAL BID Fluticasone 0.05% 1 inhaler inhalation BID Xyzal 5 mg PO DAILY hydrocodone-acetaminophen [[place]] 1 EACH tablet 1 - 2 ea PO Q6H PRN PRN (Reason: Pain) Qty: 20 0RF Rx Instructions: . . ciprofloxacin HCl 250 MG tablet 250 mg PO BID Qty: 20 0RF Primary Care Provider: Tatum Baker Referrals: Maria Luisa Andrade MD [Med Staff - Active Staff] - As soon as possible Tatum Baker DO [Primary Care Provider] - Activity Restrictions/Additional Instructions: As discussed, please call Dr. Andrade tomorrow to make an appointment. Let them know you were seen in the emergency room and had a 6 mm kidney stone on the right with hydronephrosis. Please return to the emergency room for repeat eval for any worsened pain or concerns. Disposition Disposition: Home, Self Care What to do if you have Problems For any increased pain, shortness of breath, bleeding, nausea or vomiting, chest pain, or any unexpected problems, contact your Primary Care Provider. Call [facility] ([phone]) or report to the closest Emergency Room. Call 911 if necessary. 11/28/222 <Electronically signed by Dixie Mejia MD> Cosigner Signature (if applicable): CC: Dr. Tatum Baker DO Signed Tatum Baker DO Work Phone: Start: 11-27-2022 End: 11-27-2022 Abdomen/Pelvis without Cont Procedure Note: See Note; NOTES: [facility] Imaging Services [address] [place] [id number] Abdomen/Pelvis without Cont MR#: [id number] Acct: [id number] Name: KELLY BLISS Rep #: [id number] : 1960 F 62 From: Sb Perry DO PCP: Dr. Tatum Baker DO Status: REG ER Study: Abdomen/Pelvis without Cont Date of Exam: 01/14 Exam# [id number] Ordering Dr: Dixie Mejia MD STUDY: CT ABDOMEN AND PELVIS WITHOUT CONTRAST REASON FOR EXAM: Female, 62 years old. Right-sided abdominal pain for weeks. Question hydronephrosis. RADIATION DOSAGE (If Supplied By Facility): CTDIvol = ( 7.50 ) mGy, DLP = ( 325.96 ) mGycm TECHNIQUE: Transaxial images were obtained from the dome of the diaphragm to the symphysis pubis without oral contrast, and without intravenous contrast. Sagittal and coronal images were reconstructed. Individualized dose optimization techniques were used for this CT. COMPARISON: August 28, 2016. FINDINGS: The visualized lung bases are unremarkable. The visualized portions of the heart are within normal limits. Normal liver. Normal gallbladder and extrahepatic biliary system. Mild splenomegaly without mass. Normal pancreas. Normal bilateral adrenal glands. The right kidney is enlarged. There is marked hydronephrosis and pelviectasis. There is dilatation of the ureter with mild stranding to the pelvic sidewall where there is a 0.6 x 0.4 x 0.5 cm obstructing calculus (image 109, series 2) Normal left kidney. Normal left ureter. Normal visualized stomach. Normal small intestine. Normal colon. The appendix is visualized and appears normal. There is diffuse atherosclerotic calcification of the abdominal aorta, without a demonstrated aneurysm. Normal inferior vena cava. Normal retroperitoneum. Normal urinary bladder. Normal uterus and adnexa. No pelvic lymphadenopathy. No free air or free fluid is seen within the peritoneal cavity. Small umbilical hernia of omental fat. The abdominal wall is otherwise unremarkable. There are diffuse degenerative changes of the visualized lumbar spine. CT/Abdomen/Pelvis without Cont IMPRESSION: 1. Marked right-sided hydronephrosis and ureterectasis. There is a calculus along the right pelvic sidewall. 2. Normal left kidney. 3. Mild splenomegaly. 4. Otherwise normal CT of the abdomen and pelvis Electronically Signed: Sb Perry DO at 23:07 EDT Reading Location ID and State: [facility] Tel [phone], Service support , CC: Dr. Dixie Mejia MD; Dr. Tatum Baker DO Binder Operator: Signed Tatum Baker DO Work Phone: Start: 11-26-2022 End: 11-27-2022 Abdomen Limited Procedure Note: See Note; NOTES: [facility] Imaging Services [address] [place] [address] Abdomen Limited MR#: [id number] Acct: [id number] Name: KELLY BLISS Rep #: [id number] : 1960 F 62 From: Santos Campbell MD PCP: Dr. Tatum Baker DO Status: REG CLI Study: Abdomen Limited Date of Exam: 11/26/22 Exam# [id number] Ordering Dr: Tatum Baker DO STUDY: ABDOMINAL ULTRASOUND - RIGHT UPPER QUADRANT REASON FOR VISIT: Female, 62 years old RUQ pain TECHNIQUE: Ultrasound evaluation of the right upper quadrant was performed with real-time and static sigala-scale imaging. TECHNICAL QUALITY: Adequate. COMPARISON: CT scan from 2016 FINDINGS: Liver: The liver measures 12.8 cm. There is normal echogenicity of the liver. The bile ducts are within normal limits. There is hepatic color flow. The direction of portal flow is hepatopetal. There is no demonstrated mass lesion. Gallbladder: Normal distended gallbladder. The gallbladder wall measures 2.1 mm. There is a negative sonographic Dotson''s sign. There is no pericholecystic fluid. There are no gallstones. Common Bile Duct (C.B.D.): The common bile duct measures 3.5 mm. Pancreas: Normal size of the head, body and tail of the pancreas. There is normal echogenicity of the pancreas. There is no demonstrated pancreatic mass or cyst. Right Kidney: Normal size of the right kidney. The right kidney measures 11.1 x 7 x 6.2 cm. Normal renal cortex. The right cortex measures 1.6 cm. There is no demonstrated renal mass or cyst. There is moderate hydronephrosis of the right kidney. US/Abdomen Limited IMPRESSION: Moderate to severe right hydronephrosis of uncertain etiology, the previous CT scan demonstrated multiple right renal stones, but none are seen today Electronically Signed: Mekhi Campbell MD at 8:38 EDT , CC: Dr. Tatum Baker DO Binder Operator: Signed Tatum Baker DO Work Phone: Start: 08-21-2021 End: 08-27-2021 Dexa Bone Density Study Comments: See Note; NOTES: [facility] Imaging Services [address] [place] [address] Dexa Bone Density Study MR#: [id number] Acct: [id number] Name: KELLY BLISS Rep #: [id number] : 1960 F 61 From: Josh garcia MD PCP: Dr. Cruzito Duvall MD Status: [facility] CLI Study: Dexa Bone Density Study Date of Exam: 08/21/21 Exam# [id number] Ordering Dr: Tatum Baker DO STUDY: DUAL ENERGY X-RAY ABSORPTIOMETRY / DXA REASON FOR EXAM: Female, 61 years old. Z780. Patient is postmenopausal. TECHNIQUE: Bone Mineral Density (BMD) measurements of lumbar spine and bilateral hips were obtained. COMPARISON: None. FINDINGS: Lumbar Spine (L1-L4): g/cm2 (0.863) / T-score (-1.7) / Z-score (-0.2) Findings are suggestive of osteopenia with a moderate fracture risk. Left Femur Total: g/cm2 (0.775) / T-score (-1.4) / Z-score (-0.4) Left Femoral Neck: g/cm2 (0.712) / T-score (-1.2) / Z-score (0.1) Right Femur Total: g/cm2 (0.796) / T-score (-1.2) / Z-score (-0.2) Right Femoral Neck: g/cm2 (0.715) / T-score (-1.2) / Z-score (0.1) BD/Dexa Bone Density Study IMPRESSION: The patient is considered osteopenic as outlined below according to World Ol[employer] Organization (WHO) criteria with a moderate fracture risk. Reference Information: The T-score is the number of standard deviations above or below the standard which is normal for young adults at their peak bone mineral density. The World Health Organization (WHO) interprets the T-scores as follows: Above -1 Normal bone density Between -1 and -2.5 Osteopenia Equal to / or below -2.5 Osteoporosis As a practical clinical guideline, osteopenia may be graded as follows: Mild -1 through -1.5 Moderate -1.6 through -2.0 Severe -2.1 through -2.4 The Z-score is the number of standard deviations above or below age-matched controls. A Z-score of less than -1.5 would be considered abnormal. References: 1. NIH Osteoporosis and Related Bone Diseases www osteo.org 2. International Society for Clinical Densitometry www iscd.org 3. National Osteoporosis Foundation www nof.org Electronically Signed: Josh Beal MD at 15:02 EST , Service support , CC: Dr. Tatum Baker DO; Dr. Cruzito Duvall MD Binder Operator: Signed Tatum Baker DO Work Phone: Start: 08-21-2021 End: 08-21-2021 SCRN MAMM (CAD)W/LEE BILAT Comments: See Note; NOTES: [facility] Imaging Services [address] [place] [address] SCRN MAMM (CAD)W/LEE BILAT MR#: [id number] Acct: [id number] Name: KELLY BLISS Rep #: [id number] : 1960 F 61 From: Rhett Liu MD PCP: Dr. Cruzito Duvall MD Status: REG CLI Study: SCRN MAMM (CAD)W/LEE BILAT Date of Exam: 07/26 04/14 Exam# [id number] Ordering Dr: Tatum Baker DO MAMMOGRAPHY - BILATERAL SCREENING 3-D TOMOSYNTHESIS REASON FOR EXAM: Female, 61 years old. SCREENING PERTINENT HISTORY: No significant family history. TECHNIQUE: 2-D mammograms and 3-D Tomosynthesis of the breast (s) were performed. CAD was performed. COMPARISON: 07/26/2020 FINDINGS: The breast composition is heterogeneously dense that can obscure small breast masses. Scattered benign calcifications are seen. No dense spiculated masses or suspicious microcalcifications are identified. No architectural distortion is identified. There is no skin thickening or retraction. There has been no significant change since the prior study. BI/SCRN MAMM (CAD)W/LEE BILAT IMPRESSION: No mammographic signs of malignancy. Routine yearly mammograms recommended. ASSESSMENT CATEGORY: BIRADS Category 1: Negative. A letter regarding these results will be sent to the patient by the facility within 30 days. FOLLOW UP RECOMMENDATION: Yearly follow up mammogram recommended. (A) Approximately 10% of breast cancers are not detected by mammography. A normal mammogram should not delay biopsy of a clinically suspicious abnormality. Electronically Signed: Rhett Liu MD at 11:41 EST Tel , Service support , CC: Dr. Tatum Baker DO; Dr. Cruzito Duvall MD Binder Operator: Signed Tatum Baker DO Work Phone: section [employer] Plan of Treatment Date Care Activity Detail Author Start: 06-20-2023 Hepatic function panel HEPATIC FUNCTION PANEL (19808) [facility] Work Phone: Immunizations Immunization Date Immunization Notes Care Provider Fa cility 08-25-2020 zoster vaccine, live Jordyn Baker DO Work Phone: [facility] Work Phone: Payers Date Payer Category Payer Unknown [id number] 2021 Unknown [id number] 1960 Unknown [id number] Unknown [employer] Social History Date Type Detail Facility Alcohol Use Alcohol Use [facility] Work Phone: Clinical Notes Note Date & Type Note Facility [facility] Work Phone: Instructions* Name Dates Details Patient Instructions Indication:Non-smoker Start:20-Dec-2020 Instruction Type:Provider Instructions for Treatment How to Access Health Informa tion Online using Patient Portal and [employer]rd [employer] Apps Indication:Non-smoker Start:20-Dec-2020 Instruction Type:Patient Education [facility] Work Phone: instructions* Name Dates Details Patient Instructions Indication:BMI 30.0-30.9,adult Start:18-Jul-2021 Instruction Type:Provider Instructions for Treatment How to Access Health Informa tion Online using Patient Portal and [employer] Apps Indication:BMI 30.0-30.9,adult Start:18-Jul-2021 Instruction Type:Patient Education Patient Instructions Indication:Non-smoker Start:20-Dec-2020 Instruction Type:Provider Instructions for Treatment How to Access Health Informa tion Online using Patient Portal and [employer] Apps Indication:Non-smoker Start:20-Dec-2020 Instruction Type:Patient Education [facility] Work Phone: Insfiwnubmlc* Name Dates Details Patient Instructions Indication:Non-smoker Start:31-Aug-2021 Instruction Type:Provider Instructions for Treatment How to Access Health Informa tion Online using Patient Portal and [employer] Apps Indication:Non-smoker Start:31-Aug-2021 Instruction Type:Patient Education Patient Instructions Indication:BMI 30.0-30.9,adult Start:18-Jul-2021 Instruction Type:Provider Instructions for Treatment How to Access Health Informa tion Online using Patient Portal and [employer] Apps Indication:BMI 30.0-30.9,adult Start:18-Jul-2021 Instruction Type:Patient Education Patient Instructions Indication:Non-smoker Start:20-Dec-2020 Instruction Type:Provider Instructions for Treatment How to Access Health Informa tion Online using Patient Portal and [employer] Apps Indication:Non-smoker Start:20-Dec-2020 Instruction Type:Patient Education [facility]; [facility] Work Phone: instructions* Name Dates Details Patient Instructions Indication:Non-smoker Start:31-Aug-2021 Instruction Type:Provider Instructions for Treatment How to Access Health Informa tion Online using Patient Portal and [employer] Apps Indication:Non-smoker Start:31-Aug-2021 Instruction Type:Patient Education Patient Instructions Indication:BMI 30.0-30.9,adult Start:18-Jul-2021 Instruction Type:Provider Instructions for Treatment How to Access Health Informa tion Online using Patient Portal and [employer] Apps Indication:BMI 30.0-30.9,adult Start:18-Jul-2021 Instruction Type:Patient Education Patient Instructions Indication:Non-smoker Start:20-Dec-2020 Instruction Type:Provider Instructions for Treatment How to Access Health Informa tion Online using Patient Portal and [employer] Apps Indication:Non-smoker Start:20-Dec-2020 Instruction Type:Patient Education [facility] Work Phone: instructions* Name Dates Details Patient Instructions Indication:BMI 28.0-28.9,adult Start:19-Jun-2022 Instruction Type:Provider Instructions for Treatment How to Access Health Informa tion Online using Patient Portal and [employer] Apps Indication:BMI 28.0-28.9,adult Start:19-Jun-2022 Instruction Type:Patient Education Patient Instructions Indication:Non-smoker Start:31-Aug-2021 Instruction Type:Provider Instructions for Treatment How to Access Health Informa tion Online using Patient Portal and [employer] Apps Indication:Non-smoker Start:31-Aug-2021 Instruction Type:Patient Education Patient Instructions Indication:BMI 30.0-30.9,adult Start:18-Jul-2021 Instruction Type:Provider Instructions for Treatment How to Access Health Informa tion Online using Patient Portal and [employer] Apps Indication:BMI 30.0-30.9,adult Start:18-Jul-2021 Instruction Type:Patient Education Patient Instructions Indication:Non-smoker Start:20-Dec-2020 Instruction Type:Provider Instructions for Treatment How to Access Health Informa tion Online using Patient Portal and 3[employer] Apps Indication:Non-smoker Start:20-Dec-2020 Instruction Type:Patient Education [facility] Work Phone: instructions* Name Dates Details Patient Instructions Indication:BMI 28.0-28.9,adult Start:19-Jun-2022 Instruction Type:Provider Instructions for Treatment How to Access Health Informa tion Online using Patient Portal and [employer] Apps Indication:BMI 28.0-28.9,adult Start:19-Jun-2022 Instruction Type:Patient Education Patient Instructions Indication:Non-smoker Start:31-Aug-2021 Instruction Type:Provider Instructions for Treatment How to Access Health Informa tion Online using Patient Portal and [employer] Apps Indication:Non-smoker Start:31-Aug-2021 Instruction Type:Patient Education Patient Instructions Indication:BMI 30.0-30.9,adult Start:18-Jul-2021 Instruction Type:Provider Instructions for Treatment How to Access Health Informa tion Online using Patient Portal and [employer] Apps Indication:BMI 30.0-30.9,adult Start:18-Jul-2021 Instruction Type:Patient Education Patient Instructions Indication:Non-smoker Start:20-Dec-2020 Instruction Type:Provider Instructions for Treatment How to Access Health Informa tion Online using Patient Portal and 3[employer] Apps Indication:Non-smoker Start:20-Dec-2020 Instruction Type:Patient Education [facility] Work Phone: instructions* Name Dates Details Patient Instructions Indication:BMI 28.0-28.9,adult Start:19-Jun-2022 Instruction Type:Provider Instructions for Treatment How to Access Health Informa tion Online using Patient Portal and [employer] Apps Indication:BMI 28.0-28.9,adult Start:19-Jun-2022 Instruction Type:Patient Education Patient Instructions Indication:Non-smoker Start:31-Aug-2021 Instruction Type:Provider Instructions for Treatment How to Access Health Informa tion Online using Patient Portal and [employer] Apps Indication:Non-smoker Start:31-Aug-2021 Instruction Type:Patient Education Patient Instructions Indication:BMI 30.0-30.9,adult Start:18-Jul-2021 Instruction Type:Provider Instructions for Treatment How to Access Health Informa tion Online using Patient Portal and [employer] Apps Indication:BMI 30.0-30.9,adult Start:18-Jul-2021 Instruction Type:Patient Education Patient Instructions Indication:Non-smoker Start:20-Dec-2020 Instruction Type:Provider Instructions for Treatment How to Access Health Informa tion Online using Patient Portal and [employer] Apps Indication:Non-smoker Start:20-Dec-2020 Instruction Type:Patient Education [facility]; [facility] Work Phone: instructions* Name Dates Details Patient Instructions Indication:Non-smoker Start:21-Nov-2022 Instruction Type:Provider Instructions for Treatment How to Access Health Informa tion Online using Patient Portal and [employer] Apps Indication:Non-smoker Start:21-Nov-2022 Instruction Type:Patient Education Patient Instructions Indication:BMI 28.0-28.9,adult Start:19-Jun-2022 Instruction Type:Provider Instructions for Treatment How to Access Health Informa tion Online using Patient Portal and [employer] Apps Indication:BMI 28.0-28.9,adult Start:19-Jun-2022 Instruction Type:Patient Education Patient Instructions Indication:Non-smoker Start:31-Aug-2021 Instruction Type:Provider Instructions for Treatment How to Access Health Informa tion Online using Patient Portal and [employer] Apps Indication:Non-smoker Start:31-Aug-2021 Instruction Type:Patient Education Patient Instructions Indication:BMI 30.0-30.9,adult Start:18-Jul-2021 Instruction Type:Provider Instructions for Treatment How to Access Health Informa tion Online using Patient Portal and [employer] Apps Indication:BMI 30.0-30.9,adult Start:18-Jul-2021 Instruction Type:Patient Education Patient Instructions Indication:Non-smoker Start:20-Dec-2020 Instruction Type:Provider Instructions for Treatment How to Access Health Informa tion Online using Patient Portal and [employer] Apps Indication:Non-smoker Start:20-Dec-2020 Instruction Type:Patient Education [facility] Work Phone: instructions* Name Dates Details Patient Instructions Indication:Non-smoker Start:21-Nov-2022 Instruction Type:Provider Instructions for Treatment How to Access Health Informa tion Online using Patient Portal and [employer] Apps Indication:Non-smoker Start:21-Nov-2022 Instruction Type:Patient Education Patient Instructions Indication:BMI 28.0-28.9,adult Start:19-Jun-2022 Instruction Type:Provider Instructions for Treatment How to Access Health Informa tion Online using Patient Portal and [employer] Apps Indication:BMI 28.0-28.9,adult Start:19-Jun-2022 Instruction Type:Patient Education Patient Instructions Indication:Non-smoker Start:31-Aug-2021 Instruction Type:Provider Instructions for Treatment How to Access Health Informa tion Online using Patient Portal and [employer] Apps Indication:Non-smoker Start:31-Aug-2021 Instruction Type:Patient Education Patient Instructions Indication:BMI 30.0-30.9,adult Start:18-Jul-2021 Instruction Type:Provider Instructions for Treatment How to Access Health Informa tion Online using Patient Portal and [employer] Apps Indication:BMI 30.0-30.9,adult Start:18-Jul-2021 Instruction Type:Patient Education Patient Instructions Indication:Non-smoker Start:20-Dec-2020 Instruction Type:Provider Instructions for Treatment How to Access Health Informa tion Online using Patient Portal and [employer] Apps Indication:Non-smoker Start:20-Dec-2020 Instruction Type:Patient Education [facility]; [facility] Work Phone: Instructions* Name Dates Details Patient Instructions Indication:Non-smoker Start:21-Nov-2022 Instruction Type:Provider Instructions for Treatment How to Access Health Informa tion Online using Patient Portal and [employer] Apps Indication:Non-smoker Start:21-Nov-2022 Instruction Type:Patient Education Patient Instructions Indication:BMI 28.0-28.9,adult Start:19-Jun-2022 Instruction Type:Provider Instructions for Treatment How to Access Health Informa tion Online using Patient Portal and [employer] Apps Indication:BMI 28.0-28.9,adult Start:19-Jun-2022 Instruction Type:Patient Education Patient Instructions Indication:Non-smoker Start:31-Aug-2021 Instruction Type:Provider Instructions for Treatment How to Access Health Informa tion Online using Patient Portal and [employer] Apps Indication:Non-smoker Start:31-Aug-2021 Instruction Type:Patient Education Patient Instructions Indication:BMI 30.0-30.9,adult Start:18-Jul-2021 Instruction Type:Provider Instructions for Treatment How to Access Health Informa tion Online using Patient Portal and [employer] Apps Indication:BMI 30.0-30.9,adult Start:18-Jul-2021 Instruction Type:Patient Education Patient Instructions Indication:Non-smoker Start:20-Dec-2020 Instruction Type:Provider Instructions for Treatment How to Access Health Informa tion Online using Patient Portal and 3[employer] Apps Indication:Non-smoker Start:20-Dec-2020 Instruction Type:Patient Education [facility]; [facility] Work Phone: instructions* Name Dates Details Patient Instructions Indication:Non-smoker Start:21-Nov-2022 Instruction Type:Provider Instructions for Treatment How to Access Health Informa tion Online using Patient Portal and [employer] Apps Indication:Non-smoker Start:21-Nov-2022 Instruction Type:Patient Education Patient Instructions Indication:BMI 28.0-28.9,adult Start:19-Jun-2022 Instruction Type:Provider Instructions for Treatment How to Access Health Informa tion Online using Patient Portal and [employer] Apps Indication:BMI 28.0-28.9,adult Start:19-Jun-2022 Instruction Type:Patient Education Patient Instructions Indication:Non-smoker Start:31-Aug-2021 Instruction Type:Provider Instructions for Treatment How to Access Health Informa tion Online using Patient Portal and [employer] Apps Indication:Non-smoker Start:31-Aug-2021 Instruction Type:Patient Education Patient Instructions Indication:BMI 30.0-30.9,adult Start:18-Jul-2021 Instruction Type:Provider Instructions for Treatment How to Access Health Informa tion Online using Patient Portal and [employer] Apps Indication:BMI 30.0-30.9,adult Start:18-Jul-2021 Instruction Type:Patient Education Patient Instructions Indication:Non-smoker Start:20-Dec-2020 Instruction Type:Provider Instructions for Treatment How to Access Health Informa tion Online using Patient Portal and [employer] Apps Indication:Non-smoker Start:20-Dec-2020 Instruction Type:Patient Education [facility]; [facility] Work Phone: instructions* Name Dates Details Patient Instructions Indication:Non-smoker Start:21-Nov-2022 Instruction Type:Provider Instructions for Treatment How to Access Health Informa tion Online using Patient Portal and [employer] Apps Indication:Non-smoker Start:21-Nov-2022 Instruction Type:Patient Education Patient Instructions Indication:BMI 28.0-28.9,adult Start:19-Jun-2022 Instruction Type:Provider Instructions for Treatment How to Access Health Informa tion Online using Patient Portal and [employer] Apps Indication:BMI 28.0-28.9,adult Start:19-Jun-2022 Instruction Type:Patient Education Patient Instructions Indication:Non-smoker Start:31-Aug-2021 Instruction Type:Provider Instructions for Treatment How to Access Health Informa tion Online using Patient Portal and [employer] Apps Indication:Non-smoker Start:31-Aug-2021 Instruction Type:Patient Education Patient Instructions Indication:BMI 30.0-30.9,adult Start:18-Jul-2021 Instruction Type:Provider Instructions for Treatment How to Access Health Informa tion Online using Patient Portal and [employer] Apps Indication:BMI 30.0-30.9,adult Start:18-Jul-2021 Instruction Type:Patient Education Patient Instructions Indication:Non-smoker Start:20-Dec-2020 Instruction Type:Provider Instructions for Treatment How to Access Health Informa tion Online using Patient Portal and [employer] Apps Indication:Non-smoker Start:20-Dec-2020 Instruction Type:Patient Education [facility]; [facility] Work Phone: Instructions* Name Dates Details Patient Instructions Indication:Non-smoker Start:21-Nov-2022 Instruction Type:Provider Instructions for Treatment How to Access Health Informa tion Online using Patient Portal and [employer] Apps Indication:Non-smoker Start:21-Nov-2022 Instruction Type:Patient Education Patient Instructions Indication:BMI 28.0-28.9,adult Start:19-Jun-2022 Instruction Type:Provider Instructions for Treatment How to Access Health Informa tion Online using Patient Portal and [employer] Apps Indication:BMI 28.0-28.9,adult Start:19-Jun-2022 Instruction Type:Patient Education Patient Instructions Indication:Non-smoker Start:31-Aug-2021 Instruction Type:Provider Instructions for Treatment How to Access Health Informa tion Online using Patient Portal and [employer] Apps Indication:Non-smoker Start:31-Aug-2021 Instruction Type:Patient Education Patient Instructions Indication:BMI 30.0-30.9,adult Start:18-Jul-2021 Instruction Type:Provider Instructions for Treatment How to Access Health Informa tion Online using Patient Portal and [employer] Apps Indication:BMI 30.0-30.9,adult Start:18-Jul-2021 Instruction Type:Patient Education Patient Instructions Indication:Non-smoker Start:20-Dec-2020 Instruction Type:Provider Instructions for Treatment How to Access Health Informa tion Online using Patient Portal and [employer] Apps Indication:Non-smoker Start:20-Dec-2020 Instruction Type:Patient Education [facility]; [facility] Work Phone: instructions* Name Dates Details Patient Instructions Indication:Non-smoker Start:21-Nov-2022 Instruction Type:Provider Instructions for Treatment How to Access Health Informa tion Online using Patient Portal and [employer] Apps Indication:Non-smoker Start:21-Nov-2022 Instruction Type:Patient Education Patient Instructions Indication:BMI 28.0-28.9,adult Start:19-Jun-2022 Instruction Type:Provider Instructions for Treatment How to Access Health Informa tion Online using Patient Portal and [employer] Apps Indication:BMI 28.0-28.9,adult Start:19-Jun-2022 Instruction Type:Patient Education Patient Instructions Indication:Non-smoker Start:31-Aug-2021 Instruction Type:Provider Instructions for Treatment How to Access Health Informa tion Online using Patient Portal and [employer] Apps Indication:Non-smoker Start:31-Aug-2021 Instruction Type:Patient Education Patient Instructions Indication:BMI 30.0-30.9,adult Start:18-Jul-2021 Instruction Type:Provider Instructions for Treatment How to Access Health Informa tion Online using Patient Portal and [employer] Apps Indication:BMI 30.0-30.9,adult Start:18-Jul-2021 Instruction Type:Patient Education Patient Instructions Indication:Non-smoker Start:20-Dec-2020 Instruction Type:Provider Instructions for Treatment How to Access Health Informa tion Online using Patient Portal and [employer] Apps Indication:Non-smoker Start:20-Dec-2020 Instruction Type:Patient Education [facility]; [facility] Work Phone: instructions* Name Dates Details Patient Instructions Indication:Non-smoker Start:21-Nov-2022 Instruction Type:Provider Instructions for Treatment How to Access Health Informa tion Online using Patient Portal and [employer] Apps Indication:Non-smoker Start:21-Nov-2022 Instruction Type:Patient Education Patient Instructions Indication:BMI 28.0-28.9,adult Start:19-Jun-2022 Instruction Type:Provider Instructions for Treatment How to Access Health Informa tion Online using Patient Portal and [employer] Apps Indication:BMI 28.0-28.9,adult Start:19-Jun-2022 Instruction Type:Patient Education Patient Instructions Indication:Non-smoker Start:31-Aug-2021 Instruction Type:Provider Instructions for Treatment How to Access Health Informa tion Online using Patient Portal and [employer] Apps Indication:Non-smoker Start:31-Aug-2021 Instruction Type:Patient Education Patient Instructions Indication:BMI 30.0-30.9,adult Start:18-Jul-2021 Instruction Type:Provider Instructions for Treatment How to Access Health Informa tion Online using Patient Portal and [employer] Apps Indication:BMI 30.0-30.9,adult Start:18-Jul-2021 Instruction Type:Patient Education Patient Instructions Indication:Non-smoker Start:20-Dec-2020 Instruction Type:Provider Instructions for Treatment How to Access Health Informa tion Online using Patient Portal and [employer] Apps Indication:Non-smoker Start:20-Dec-2020 Instruction Type:Patient Education [facility]; [facility] Work Phone: Instructions* Name Dates Details Patient Instructions Indication:Non-smoker Start:21-Nov-2022 Instruction Type:Provider Instructions for Treatment How to Access Health Informa tion Online using Patient Portal and [employer] Apps Indication:Non-smoker Start:21-Nov-2022 Instruction Type:Patient Education Patient Instructions Indication:BMI 28.0-28.9,adult Start:19-Jun-2022 Instruction Type:Provider Instructions for Treatment How to Access Health Informa tion Online using Patient Portal and [employer] Apps Indication:BMI 28.0-28.9,adult Start:19-Jun-2022 Instruction Type:Patient Education Patient Instructions Indication:Non-smoker Start:31-Aug-2021 Instruction Type:Provider Instructions for Treatment How to Access Health Informa tion Online using Patient Portal and [employer] Apps Indication:Non-smoker Start:31-Aug-2021 Instruction Type:Patient Education Patient Instructions Indication:BMI 30.0-30.9,adult Start:18-Jul-2021 Instruction Type:Provider Instructions for Treatment How to Access Health Informa tion Online using Patient Portal and [employer] Apps Indication:BMI 30.0-30.9,adult Start:18-Jul-2021 Instruction Type:Patient Education Patient Instructions Indication:Non-smoker Start:20-Dec-2020 Instruction Type:Provider Instructions for Treatment How to Access Health Informa tion Online using Patient Portal and [employer] Apps Indication:Non-smoker Start:20-Dec-2020 Instruction Type:Patient Education [facility]; [facility] Work Phone: instructions* Name Dates Details Patient Instructions Indication:Non-smoker Start:21-Nov-2022 Instruction Type:Provider Instructions for Treatment How to Access Health Informa tion Online using Patient Portal and [employer] Apps Indication:Non-smoker Start:21-Nov-2022 Instruction Type:Patient Education Patient Instructions Indication:BMI 28.0-28.9,adult Start:19-Jun-2022 Instruction Type:Provider Instructions for Treatment How to Access Health Informa tion Online using Patient Portal and [employer] Apps Indication:BMI 28.0-28.9,adult Start:19-Jun-2022 Instruction Type:Patient Education Patient Instructions Indication:Non-smoker Start:31-Aug-2021 Instruction Type:Provider Instructions for Treatment How to Access Health Informa tion Online using Patient Portal and [employer] Apps Indication:Non-smoker Start:31-Aug-2021 Instruction Type:Patient Education Patient Instructions Indication:BMI 30.0-30.9,adult Start:18-Jul-2021 Instruction Type:Provider Instructions for Treatment How to Access Health Informa tion Online using Patient Portal and [employer] Apps Indication:BMI 30.0-30.9,adult Start:18-Jul-2021 Instruction Type:Patient Education Patient Instructions Indication:Non-smoker Start:20-Dec-2020 Instruction Type:Provider Instructions for Treatment How to Access Health Informa tion Online using Patient Portal and [employer] Apps Indication:Non-smoker Start:20-Dec-2020 Instruction Type:Patient Education [facility]; [facility] Work Phone: instructions* Name Dates Details Patient Instructions Indication:Non-smoker Start:21-Nov-2022 Instruction Type:Provider Instructions for Treatment How to Access Health Informa tion Online using Patient Portal and [employer] Apps Indication:Non-smoker Start:21-Nov-2022 Instruction Type:Patient Education Patient Instructions Indication:BMI 28.0-28.9,adult Start:19-Jun-2022 Instruction Type:Provider Instructions for Treatment How to Access Health Informa tion Online using Patient Portal and [employer] Apps Indication:BMI 28.0-28.9,adult Start:19-Jun-2022 Instruction Type:Patient Education Patient Instructions Indication:Non-smoker Start:31-Aug-2021 Instruction Type:Provider Instructions for Treatment How to Access Health Informa tion Online using Patient Portal and [employer] Apps Indication:Non-smoker Start:31-Aug-2021 Instruction Type:Patient Education Patient Instructions Indication:BMI 30.0-30.9,adult Start:18-Jul-2021 Instruction Type:Provider Instructions for Treatment How to Access Health Informa tion Online using Patient Portal and [employer] Apps Indication:BMI 30.0-30.9,adult Start:18-Jul-2021 Instruction Type:Patient Education Patient Instructions Indication:Non-smoker Start:20-Dec-2020 Instruction Type:Provider Instructions for Treatment How to Access Health Informa tion Online using Patient Portal and [employer] Apps Indication:Non-smoker Start:20-Dec-2020 Instruction Type:Patient Education [facility]; [facility] Work Phone: Instructions* Name Dates Details Patient Instructions Indication:Non-smoker Start:19-Jun-2023 Instruction Type:Provider Instructions for Treatment How to Access Health Informa tion Online using Patient Portal and [employer] Apps Indication:Non-smoker Start:19-Jun-2023 Instruction Type:Patient Education Patient Instructions Indication:Non-smoker Start:21-Nov-2022 Instruction Type:Provider Instructions for Treatment How to Access Health Informa tion Online using Patient Portal and [employer] Apps Indication:Non-smoker Start:21-Nov-2022 Instruction Type:Patient Education Patient Instructions Indication:BMI 28.0-28.9,adult Start:19-Jun-2022 Instruction Type:Provider Instructions for Treatment How to Access Health Informa tion Online using Patient Portal and [employer] Apps Indication:BMI 28.0-28.9,adult Start:19-Jun-2022 Instruction Type:Patient Education Patient Instructions Indication:Non-smoker Start:31-Aug-2021 Instruction Type:Provider Instructions for Treatment How to Access Health Informa tion Online using Patient Portal and [employer] Apps Indication:Non-smoker Start:31-Aug-2021 Instruction Type:Patient Education Patient Instructions Indication:BMI 30.0-30.9,adult Start:18-Jul-2021 Instruction Type:Provider Instructions for Treatment How to Access Health Informa tion Online using Patient Portal and [employer] Apps Indication:BMI 30.0-30.9,adult Start:18-Jul-2021 Instruction Type:Patient Education Patient Instructions Indication:Non-smoker Start:20-Dec-2020 Instruction Type:Provider Instructions for Treatment How to Access Health Informa tion Online using Patient Portal and [employer] Apps Indication:Non-smoker Start:20-Dec-2020 Instruction Type:Patient Education [facility]; [facility] Work Phone: Instructions* Name Dates Details Patient Instructions Indication:Non-smoker Start:19-Jun-2023 Instruction Type:Provider Instructions for Treatment How to Access Health Informa tion Online using Patient Portal and [employer] Apps Indication:Non-smoker Start:19-Jun-2023 Instruction Type:Patient Education Patient Instructions Indication:Non-smoker Start:21-Nov-2022 Instruction Type:Provider Instructions for Treatment How to Access Health Informa tion Online using Patient Portal and [employer] Apps Indication:Non-smoker Start:21-Nov-2022 Instruction Type:Patient Education Patient Instructions Indication:BMI 28.0-28.9,adult Start:19-Jun-2022 Instruction Type:Provider Instructions for Treatment How to Access Health Informa tion Online using Patient Portal and [employer] Apps Indication:BMI 28.0-28.9,adult Start:19-Jun-2022 Instruction Type:Patient Education Patient Instructions Indication:Non-smoker Start:31-Aug-2021 Instruction Type:Provider Instructions for Treatment How to Access Health Informa tion Online using Patient Portal and [employer] Apps Indication:Non-smoker Start:31-Aug-2021 Instruction Type:Patient Education Patient Instructions Indication:BMI 30.0-30.9,adult Start:18-Jul-2021 Instruction Type:Provider Instructions for Treatment How to Access Health Informa tion Online using Patient Portal and [employer] Apps Indication:BMI 30.0-30.9,adult Start:18-Jul-2021 Instruction Type:Patient Education Patient Instructions Indication:Non-smoker Start:20-Dec-2020 Instruction Type:Provider Instructions for Treatment How to Access Health Informa tion Online using Patient Portal and [employer] Apps Indication:Non-smoker Start:20-Dec-2020 Instruction Type:Patient Education [facility]; [facility] Work Phone: Family History Unknown Family Member Name Dates Details Father Comments:multiple myeloma, h igh cholesterol , hypertension, copd Status:Active Mother Comments:high blood pressure , high cholesterol, copd thyroid tuerine and vulvar cancer Status:Active Unknown Family Member Name Dates Details Father Comments:multiple myeloma, h igh cholesterol , hypertension, copd Status:Active Mother Comments:high blood pressure , high cholesterol, copd thyroid tuerine and vulvar cancer Status:Active Unknown Family Member Name Dates Details Father Comments:multiple myeloma, h igh cholesterol , hypertension, copd Status:Active Mother Comments:high blood pressure , high cholesterol, copd thyroid tuerine and vulvar cancer Status:Active Unknown Family Member Name Dates Details Father Comments:multiple myeloma, h igh cholesterol , hypertension, copd Status:Active Mother Comments:high blood pressure , high cholesterol, copd thyroid tuerine and vulvar cancer Status:Active Unknown Family Member Name Dates Details Father Comments:multiple myeloma, h igh cholesterol , hypertension, copd Status:Active Mother Comments:high blood pressure , high cholesterol, copd thyroid tuerine and vulvar cancer Status:Active Unknown Family Member Name Dates Details Father Comments:multiple myeloma, h igh cholesterol , hypertension, copd Status:Active Mother Comments:high blood pressure , high cholesterol, copd thyroid tuerine and vulvar cancer Status:Active Unknown Family Member Name Dates Details Father Comments:multiple myeloma, h igh cholesterol , hypertension, copd Status:Active Mother Comments:high blood pressure , high cholesterol, copd thyroid tuerine and vulvar cancer Status:Active Unknown Family Member Name Dates Details Father Comments:multiple myeloma, h igh cholesterol , hypertension, copd Status:Active Mother Comments:high blood pressure , high cholesterol, copd thyroid tuerine and vulvar cancer Status:Active Unknown Family Member Name Dates Details Father Comments:multiple myeloma, h igh cholesterol , hypertension, copd Status:Active Mother Comments:high blood pressure , high cholesterol, copd thyroid tuerine and vulvar cancer Status:Active Unknown Family Member Name Dates Details Father Comments:multiple myeloma, h igh cholesterol , hypertension, copd Status:Active Mother Comments:high blood pressure , high cholesterol, copd thyroid tuerine and vulvar cancer Status:Active Unknown Family Member Name Dates Details Father Comments:multiple myeloma, h igh cholesterol , hypertension, copd Status:Active Mother Comments:high blood pressure , high cholesterol, copd thyroid tuerine and vulvar cancer Status:Active Unknown Family Member Name Dates Details Father Comments:multiple myeloma, h igh cholesterol , hypertension, copd Status:Active Mother Comments:high blood pressure , high cholesterol, copd thyroid tuerine and vulvar cancer Status:Active Unknown Family Member Name Dates Details Father Comments:multiple myeloma, h igh cholesterol , hypertension, copd Status:Active Mother Comments:high blood pressure , high cholesterol, copd thyroid tuerine and vulvar cancer Status:Active Unknown Family Member Name Dates Details Father Comments:multiple myeloma, h igh cholesterol , hypertension, copd Status:Active Mother Comments:high blood pressure , high cholesterol, copd thyroid tuerine and vulvar cancer Status:Active Unknown Family Member Name Dates Details Father Comments:multiple myeloma, h igh cholesterol , hypertension, copd Status:Active Mother Comments:high blood pressure , high cholesterol, copd thyroid tuerine and vulvar cancer Status:Active Unknown Family Member Name Dates Details Father Comments:multiple myeloma, h igh cholesterol , hypertension, copd Status:Active Mother Comments:high blood pressure , high cholesterol, copd thyroid tuerine and vulvar cancer Status:Active Unknown Family Member Name Dates Details Father Comments:multiple myeloma, h igh cholesterol , hypertension, copd Status:Active Mother Comments:high blood pressure , high cholesterol, copd thyroid tuerine and vulvar cancer Status:Active Unknown Family Member Name Dates Details Father Comments:multiple myeloma, h igh cholesterol , hypertension, copd Status:Active Mother Comments:high blood pressure , high cholesterol, copd thyroid tuerine and vulvar cancer Status:Active Unknown Family Member Name Dates Details Father Comments:multiple myeloma, h igh cholesterol , hypertension, copd Status:Active Mother Comments:high blood pressure , high cholesterol, copd thyroid tuerine and vulvar cancer Status:Active Unknown Family Member Name Dates Details Father Comments:multiple myeloma, h igh cholesterol , hypertension, copd Status:Active Mother Comments:high blood pressure , high cholesterol, copd thyroid tuerine and vulvar cancer Status:Active Unknown Family Member Name Dates Details Father Comments:multiple myeloma, h igh cholesterol , hypertension, copd Status:Active Mother Comments:high blood pressure , high cholesterol, copd thyroid tuerine and vulvar cancer Status:Active Advance Directives Name Dates Details Immunization Registry [place] - Effective on 12/20/2020. Expiration date unspecified Effective:20-Dec-2020 Name Dates Details Immunization Registry [place] - Effective on 12/20/2020. Expiration date unspecified Effective:20-Dec-2020 Name Dates Details Immunization Registry [place] - Effective on 12/20/2020. Expiration date unspecified Effective:20-Dec-2020 Name Dates Details Immunization Registry [place] - Effective on 12/20/2020. Expiration date unspecified Effective:20-Dec-2020 Name Dates Details Immunization Registry [place] - Effective on 12/20/2020. Expiration date unspecified Effective:20-Dec-2020 Name Dates Details Immunization Registry [place] - Effective on 12/20/2020. Expiration date unspecified Effective:20-Dec-2020 Name Dates Details Immunization Registry [place] - Effective on 12/20/2020. Expiration date unspecified Effective:20-Dec-2020 Name Dates Details Immunization Registry [place] - Effective on 12/20/2020. Expiration date unspecified Effective:20-Dec-2020 Name Dates Details Immunization Registry [place] - Effective on 12/20/2020. Expiration date unspecified Effective:20-Dec-2020 Name Dates Details Immunization Registry [place] - Effective on 12/20/2020. Expiration date unspecified Effective:20-Dec-2020 Name Dates Details Immunization Registry [place] - Effective on 12/20/2020. Expiration date unspecified Effective:20-Dec-2020 Name Dates Details Immunization Registry [place] - Effective on 12/20/2020. Expiration date unspecified Effective:20-Dec-2020 Name Dates Details Immunization Registry [place] - Effective on 12/20/2020. Expiration date unspecified Effective:20-Dec-2020 Summary Purpose Additional Source Comments INFORMATION SOURCE (unrecogn ized section and content) FOR RECORDS PERTAINING TO PATIENTS WHO ARE OR HAVE BEEN ENROLLED IN A CHEMICAL DEPENDENCY/SUBSTANCEABUSE PROGRAM, SOME INFORMATION MAY BE OMITTED. This clinical summary was aggregated from multiple sources. Caution should be exercised in using it in the provision of clinical care. This summary normalizes information from multiple sources, and as a consequence, information in this document may materially change the coding, format and clinical context of patient data. In addition, data may be omitted in some cases. CLINICAL DECISIONS SHOULD BE BASED ON THE PRIMARY CLINICAL RECORDS. [facility]. provides no warranty or guarantee of the accuracy or completeness of information in this document.
== END | disposition home or self-care (01) ==
LOC: OPBD 10:28
PROVIDERS: PCP Internal Medicine; Referring Provider Internal Medicine; Visit Provider Internal Medicine
DX: Z78.0 Asymptomatic menopausal state (principal)
CPT/HCPCS: 77080

== ENCOUNTER → 2024-03-01 | Outpatient (CLI) | payer OTHER, SELFPAY ==
--- NOTE | 2024-03-01 09:31 | RAD_ITS ---
STUDY: X-RAY - ABDOMEN/PELVIS REASON FOR EXAM: Female, 63 years old. STONES TECHNIQUE: Frontal views COMPARISON: None. FINDINGS: Normal visualized lung bases. There is an unremarkable bowel gas pattern. There is no demonstrated free abdominal air. The visualized liver, spleen and kidneys are grossly normal in size and morphology. Normal soft tissue structures. Normal visualized osseous structures. RAD/Abdomen Single View IMPRESSION: Normal x-ray examination of the abdomen and pelvis. Electronically Signed: Rajendra Bush DO at 18:56 EDT ,
== END | disposition home or self-care (01) ==
PROVIDERS: PCP Internal Medicine; Referring Provider Urology; Visit Provider Urology
DX: N20.0 Calculus of kidney (principal)
CPT/HCPCS: 74018

== ENCOUNTER → 2024-08-10 | Outpatient (CLI) | payer OTHER, SELFPAY ==
--- NOTE | 2024-08-10 09:48 | BI_ITS ---
MAMMOGRAPHY - BILATERAL SCREENING REASON FOR EXAM: Female, 64 years old. Routine annual screening examination. PERTINENT HISTORY: Non-contributory. TECHNIQUE: Digital bilateral breast lee (3D mammographic acquisition) in the CC and MLO projections. 2-D mediolateral oblique (MLO) and craniocaudad (CC) views of both breasts were obtained. CAD: Full Field Digital Mammography with Computer Added Detection was performed. COMPARISON: Comparison is made with prior study dated July 25, 2023 and August 21, 2021. FINDINGS: Breast Composition: The breasts are heterogeneously dense, which may obscure small masses. There are no dominant masses or suspicious calcifications. Stable 5.3 mm well-defined nodule in the central portion of the left breast. Prior sonogram demonstrated this to be a small cyst. No other significant abnormalities are identified. There has been no significant change since the prior study. BI/SCRN MAMM (CAD)W/LEE BILAT IMPRESSION: Stable bilateral screening mammogram. Yearly follow-up mammogram recommended. (A) ASSESSMENT CATEGORY: BIRADS Category 2: Benign. A letter regarding these results will be sent to the patient by the facility within 30 days. Approximately 10% of breast cancers are not detected by mammography. A normal mammogram should not delay biopsy of a clinically suspicious abnormality. [id number] Electronically Signed: Josh Beal MD at 11:02 EST ,
== END | disposition home or self-care (01) ==
LOC: OPBI 09:48
PROVIDERS: PCP Internal Medicine; Referring Provider Internal Medicine; Visit Provider Internal Medicine
DX: Z12.31 Encounter for screening mammogram for malignant neoplasm of breast (principal); Z78.0 Asymptomatic menopausal state
CPT/HCPCS: 77063; 77067

== ENCOUNTER → 2024-08-16 | Outpatient (CLI) | payer SELFPAY ==
[2024-08-16 11:06] LABS: Mucous, Urine 0 SEEN /hpf (<or=2+)
[2024-08-16 11:10] LABS: Color, Urine Yellow (Yellow); Glucose, Dipstick Normal (Normal); Ketone-Dipstick Negative (Negative); Leukocyte Esterase-Dipstick 500 /ul (Negative); Nitrite-Dipstick Positive (Negative); Occult Blood-Urine 250 /ul (Negative); Protein-Dipstick 100 mg/dl (Negative); Specific Gravity, Urine 1.025 (1.002-1.030); Urine Bilirubin Dipstick Negative (Negative); Urine Clarity Cloudy (Clear); Urine Urobilinogen Normal (Normal)
[2024-08-16 11:20] LABS: Bacteria 3+ /hpf (None Seen)
[2024-08-16 11:21] LABS: Calcium Oxalate Crystals Ur 1+ /hpf (<or=2+); Red Blood Cells-Urine 10-25 SEEN /hpf (0-5); Squamous Epithelial Cells - UA 0-5 SEEN /hpf (5-10); White Blood Cells 25-50 SEEN /hpf (0-5)
== END | disposition home or self-care (01) ==
LOC: LABSPEC 11:03
PROVIDERS: PCP Internal Medicine; Referring Provider Nurse Practitioner Family; Visit Provider Nurse Practitioner Family
DX: R39.15 Urgency of urination (principal)
CPT/HCPCS: 81001; 87086; 87088; 87186

== ENCOUNTER → 2025-07-26 | Outpatient (CLI) | payer OTHER, SELFPAY ==
[2025-07-26 12:19] LABS: Hematocrit 45.7 % (37-47); Hemoglobin 15.0 g/dL (12.0-15.0); Immature Granulocytes Count 0.010 X10^3/uL (0.0-0.0); Mean Corp Hgb Conc 32.8 g/dL (32-36); Mean Corpuscular Volume 87.4 fL (81-99); Mean Platelet Vol. 10.7 fl (6.2-12.0); NRBC Flagged by Analyzer 0 % (0-5); Platelet Count 179 K/mm3 (150-450); RBC Distribution Width CV 13.5 % (11.6-14.6); RBC Distribution Width SD 43.2 fl (35.1-43.9); Red Blood Count 5.23 M/mm3 (4.2-5.4); White Blood Count 6.1 K/mm3 (4.4-11.0)
[2025-07-26 15:53] LABS: AST(SGOT) 29 U/L (<=31); Alanine Aminotransfer ALT/SGPT 41 U/L (<=34); Albumin, Serum 4.2 g/dL (3.4-4.8); Alkaline Phosphatase 45 U/L (35-104); Anion Gap 10 (5-15); BUN 15 mg/dL (4-19); BUN/Creat Ratio 15.2 RATIO (10-20); Calcium,Total 9.2 mg/dL (7.6-11.0); Carbon Dioxide 25.3 mmol/L (21.0-32.0); Chloride 104 mmol/L (98-108); Cholesterol 245 mg/dL (<=200); Globulin 2.5 g/dL (2.2-4.2); Glucose 88 mg/dL (70-99); Low Density Lipoprotein Calc. 151 mg/dL; Potassium 4.2 mmol/L (3.3-5.1); Triglycerides 120 mg/dL; Very Low Density Lipoprotein 24 mg/dL (5-40); cholesterol:hdl ratio screen 3.33
[2025-07-29 13:08] LABS: Vitamin D 1,25-Dihydroxy 65.9 pg/mL (24.8-81.5)
== END | disposition home or self-care (01) ==
LOC: CIMLAB 11:08
PROVIDERS: PCP Internal Medicine; Referring Provider Internal Medicine; Visit Provider Internal Medicine
DX: E55.9 Vitamin D deficiency, unspecified (principal); E78.5 Hyperlipidemia, unspecified
CPT/HCPCS: 36415; 80053; 80061; 82652; 84443; 85025